=== PATIENT | male | born 1965 | race Hispanic/Latino ===

== ENCOUNTER 2017-12-14 08:59 | Day surgery (SDC) | payer MEDICARE ==
[2017-12-14] VITALS (7 sets, daily range): BP systolic 115–156; BP diastolic 52–72
[~2017-12-14] VITALS: Ht 172.7 cm; Wt 109.3 kg
[~2017-12-14 08:59] MED LIST: APIX2.5T PO; ASPI-1181 PO; ATOR40TA71 PO; BESI5OS OS; CLOP75TA14 PO; DIFL5DRO OS; FAMO20TA8 PO; GABA-529 PO; LIRA0.6P SQ; LORA10CA PO; LOSA50TA25 PO; METO50TA18 PO; SEVE800T7 PO; SODIUM CHLORIDE 0.9% 1000ML 1,000 ML IV ONE; SUCR500T PO
[2017-12-14] MEDS ORDERED: CALC667C10 PO (10:53)
[2017-12-14] MEDS ORDERED: INSLAN SQ (10:53)
[2017-12-14] MEDS ORDERED: SUCR1TAB2 PO (10:53)
[2017-12-14] MEDS ORDERED: PANT40TA25 PO (10:53)
[2017-12-14] MEDS ORDERED: OMEP40CA37 PO (10:53)
[2017-12-14] MEDS ORDERED: BRIM5DRO4 OU (10:53)
[2017-12-14] MEDS ORDERED: PROPOFOL 10 MG/ML 20ML VIAL IV ONE ×2 (10:53→11:22)
[2017-12-14] MEDS ORDERED: FOLI1TAB61 PO (10:53)
[2017-12-14] MEDS ORDERED: LIDOCAINE HCL-MPF 2% 5ML VIAL ONE (10:54)
== END 2017-12-14 12:01 | disposition home or self-care (01) ==
LOC: ENDO 08:59 → DAH 08:59 → ENDO 12:01
PROVIDERS: ATTEND Internal Medicine
DX: K29.50 Unspecified chronic gastritis without bleeding (principal); K29.80 Duodenitis without bleeding; B96.81 Helicobacter pylori [H. pylori] as the cause of diseases classified elsewhere; K26.9 Duodenal ulcer, unspecified as acute or chronic, without hemorrhage or perforation; K31.89 Other diseases of stomach and duodenum; K22.8 Other specified diseases of esophagus; D64.9 Anemia, unspecified; I25.118 Atherosclerotic heart disease of native coronary artery with other forms of angina pectoris; E78.5 Hyperlipidemia, unspecified; Z79.899 Other long term (current) drug therapy; E11.51 Type 2 diabetes mellitus with diabetic peripheral angiopathy without gangrene; Z90.49 Acquired absence of other specified parts of digestive tract; I13.2 Hypertensive heart and chronic kidney disease with heart failure and with stage 5 chronic kidney disease, or end stage renal disease; E11.22 Type 2 diabetes mellitus with diabetic chronic kidney disease; N18.6 End stage renal disease; I50.31 Acute diastolic (congestive) heart failure; Z99.2 Dependence on renal dialysis; Z79.4 Long term (current) use of insulin; Z79.84 Long term (current) use of oral hypoglycemic drugs; K21.9 Gastro-esophageal reflux disease without esophagitis
CPT/HCPCS: 36415; 43239; 82948 ×2; 84132; 88305; 88342; A4606; J2704 ×2; J3490; J7030

== ENCOUNTER → 2018-11-15 | Outpatient (CLI) | payer MEDICARE ==
[~2018-11-15] MED LIST changes: -APIX2.5T PO; -ASPI-1181 PO; -BESI5OS OS; +BRIM5DRO4 OU; +CALC667C10 PO; -DIFL5DRO OS; -FAMO20TA8 PO; +FOLI1TAB61 PO; -GABA-529 PO; +INSLAN SQ; -LIRA0.6P SQ; -LORA10CA PO; -LOSA50TA25 PO; +LOSA50TA64 PO; +OMEP40CA37 PO; +PANT40TA25 PO; -SODIUM CHLORIDE 0.9% 1000ML 1,000 ML IV ONE; +SUCR1TAB2 PO
== END | disposition home or self-care (01) ==
LOC: RAH 09:48
PROVIDERS: ATTEND Internal Medicine Gastroenterology
DX: R16.0 Hepatomegaly, not elsewhere classified (principal)
CPT/HCPCS: 76700

== ENCOUNTER 2018-12-29 15:46 | Emergency (ER) | payer MEDICARE | END 2018-12-29 16:51 | disposition home or self-care (01) | LOC: EDH 15:46 | DX: S91.115A Laceration without foreign body of left lesser toe(s) without damage to nail, initial encounter (principal); E11.22 Type 2 diabetes mellitus with diabetic chronic kidney disease; I12.0 Hypertensive chronic kidney disease with stage 5 chronic kidney disease or end stage renal disease; N18.6 End stage renal disease; E78.5 Hyperlipidemia, unspecified; Z99.2 Dependence on renal dialysis; W26.8XXA Contact with other sharp object(s), not elsewhere classified, initial encounter; Y93.89 Activity, other specified; Y92.89 Other specified places as the place of occurrence of the external cause; Y99.8 Other external cause status ==

== ENCOUNTER → 2019-06-05 | Outpatient (CLI) | payer MEDICARE ==
[~2019-06-05] MED LIST changes: +ATOR40TA69 PO; -ATOR40TA71 PO; +BENZ-51 PO; -BRIM5DRO4 OU; +CARV6.25 PO; -CLOP75TA14 PO; -FOLI1TAB61 PO; -INSLAN SQ; +LOPE2CAP PO; +LOSA100T58 PO; -LOSA50TA64 PO; -METO50TA18 PO; -OMEP40CA37 PO; -SUCR1TAB2 PO
== END | disposition home or self-care (01) ==
LOC: CANPRECLI → RAH 06:40
PROVIDERS: ATTEND Internal Medicine Gastroenterology
DX: R11.0 Nausea (principal); R68.81 Early satiety; R14.0 Abdominal distension (gaseous)
CPT/HCPCS: 78264; A9541

== ENCOUNTER → 2019-11-07 | Outpatient (CLI) | payer MEDICARE | END | disposition home or self-care (01) | LOC: SHCH 10:17 | PROVIDERS: ATTEND Internal Medicine Cardiovascular Disease | DX: I78.9 Disease of capillaries, unspecified (principal) | CPT/HCPCS: 93925 ==

== ENCOUNTER 2019-12-10 20:37 | Inpatient (IN) | payer MEDICARE ==
[~2019-12-10] VITALS: Ht 162.6 cm; Wt 118.8 kg
[~2019-12-10 20:37] MED LIST changes: -PANT40TA25 PO; +PANT40TA54 PO
[2019-12-10] MEDS ORDERED: AZITHROMYCIN 500MG+NS 250ML 250 ML IV ONE (21:02)
[2019-12-10] MEDS ORDERED: CEFTRIAXONE SODIUM 2 GM VIAL ONE (21:02)
[2019-12-10] MEDS ORDERED: SODIUM CHLORIDE 0.9% 50 ML IV ONE (21:03)
[2019-12-10 21:08] LABS: ABG BASE EXCESS -0.4 mmol/L (-2.0-3.0); ABG OXYGEN SATURATION 92.1 % (95.0-99.0); ABG PCO2 34 mmHg (35-48)
[2019-12-10] MEDS ORDERED: ACETAMINOPHEN EXTRA STRENGTH 500 MG TABLET ONE (21:21)
[2019-12-10 21:25] LABS: BASOPHILS % (AUTO) 0.1 % (0.0-5.0); EOSINOPHILS % (AUTO) 0.3 % (0.0-8.0); HEMATOCRIT 30.5 % (42-54); LYMPHOCYTES % (AUTO) 9.9 % (21.0-51.0); MEAN CORPUSCULAR HGB CONC 33.1 g/dL (32.0-36.0); MEAN CORPUSCULAR VOLUME 93.6 fL (79-99); NEUTROPHILS % (AUTO) 81.4 % (40.0-77.0); PLATELET COUNT (AUTO) 146 K/uL (130-400); RED BLOOD CELL COUNT(AUTO) 3.26 MIL/uL (4.50-6.20); RED CELL DISTRIBUTION WIDTH 13.8 % (11.0-15.5); WHITE BLOOD COUNT (AUTO) 7.4 K/uL (4.8-10.8)
[2019-12-10 21:39] LABS: INR 0.88 (0.85-1.15); PARTIAL THROMBOPLASTIN TIME 27.8 SEC (26.3-35.5); PROTHROMBIN TIME 9.6 SEC (9.6-11.6)
[2019-12-10 22:00] LABS: ALBUMIN 3.1 g/dL (3.5-5.0); BILIRUBIN,TOTAL 0.4 mg/dL (0.2-1.0); POTASSIUM 5.1 mmol/L (3.5-5.1); TOTAL PROTEIN, SERUM 7.6 g/dL (6.0-8.3); TROPONIN I 0.05 ng/mL (0.00-0.06)
[2019-12-10 22:04] LABS: CREATININE 12.1 mg/dL (0.5-1.5)
[2019-12-10 23:15] LABS: APPEARANCE,URINE Clear (CLEAR); BILIRUBIN,URINE Negative (NEGATIVE); COLOR,URINE Yellow (YELLOW); GLUCOSE, URINE (UA) >=1000 mg/dL (NEGATIVE); KETONES,URINE Negative (NEGATIVE); LEUKOCYTE ESTERASE ,URINE Negative (NEGATIVE); NITRATE,URINE Negative (NEGATIVE); OCCULT BLOOD,URINE Negative (NEGATIVE); PH,URINE 7.5 (5.0-8.0); PROTEIN,URINE 300 mg/dL (NEGATIVE)
[2019-12-10 23:27] LABS: BACTERIA,URINE None Seen /HPF (None Seen); RBC,URINE 0-1 /HPF (0-1); SQUAMOUS EPITHELIAL CELL,UR Rare /HPF (0-2); WBC,URINE 0-1 /HPF (0-1); YEAST,URINE BUDDING None Seen /HPF (None Seen)
[2019-12-10] MEDS ORDERED: ONDANSETRON HCL 4 MG/2 ML VIAL IV PRN (23:30)
[2019-12-10] MEDS ORDERED: MAG HYDROX/AL HYDROX/SIMETH ES 30 ML SUSP UDCUP PO PRN (23:30)
[2019-12-10] MEDS: AZITHROMYCIN 500MG+NS 250ML 250 ML IV SCH (23:30)
[2019-12-10] MEDS ORDERED: ACETAMINOPHEN 325 MG TAB PO PRN (23:30)
[2019-12-10] MEDS ORDERED: LACTULOSE 20 GM/30 ML UDCUP PO PRN (23:30)
[2019-12-10] MEDS ORDERED: NITROGLYCERIN 0.4 MG SL TAB SL PRN (23:30)
[2019-12-10] MEDS: CEFTRIAXONE SODIUM 1 GM IV SCH (23:30)
[2019-12-10] MEDS ORDERED: MORPHINE SULFATE 2 MG/ML 1ML SYG IV PRN (23:30)
[2019-12-10] MEDS ORDERED: MORPHINE SULFATE 4 MG/1ML SYG IV PRN (23:30)
[2019-12-10] MEDS ORDERED: MAG HYDROX/AL HYDROX/SIMETH 30 ML, LIDOCAINE HCL 2% VISCOUS 30 ML, DIPHENHYDRAMINE HCL ... PO PRN ×3 (23:30)
[2019-12-10] MEDS ORDERED: DiphenhydrAMINE HCL 50 MG/ML VIAL IV PRN (23:30)
[2019-12-10] MEDS ORDERED: LIDOCAINE HCL 2% VISCOUS 30 ML, MAG HYDROX/AL HYDROX/SIMETH 30 ML, BELLADONNA-PHENOBARB... PO PRN ×3 (23:30)
[2019-12-10] MEDS ORDERED: DIPHENHYDRAMINE HCL 25 MG CAPSULE PO PRN (23:30)
[2019-12-10] MEDS: DEXAMETHASONE SOD PHOSPHATE 4 MG/ML 1ML VIAL IVP SCH (23:45)
[2019-12-11] MEDS ORDERED: ERGOCALCIFEROL (VITAMIN D2) 50,000 UNIT CAPSULE PO ONE
[2019-12-11] MEDS ORDERED: IOHEXOL-350 75 ML VIAL IV ONE (00:27)
[2019-12-11] MEDS ORDERED: DEXAMETHASONE SOD PHOSPHATE 10MG/ML 1ML VIAL ONE (00:42)
[2019-12-11] MEDS ORDERED: ERGOCALCIFEROL (VITAMIN D2) 50,000 UNIT CAPSULE ONE (00:42)
[2019-12-11] MEDS ORDERED: GLUCAGON 1MG KIT 1 MG ML IM PRN (00:45)
[2019-12-11] MEDS ORDERED: DEXTROSE 50%-WATER 50 ML DISP.SYRIN IV PRN (00:45)
[2019-12-11] MEDS ORDERED: PHARMACY COMMUNICATION**REMDESIVIR ORDER MISC SCH (01:00)
[2019-12-11] MEDS: GUAIFENESIN-DM 200/20 MG 10 ML PO PRN ×3 (05:09→20:40)
[2019-12-11] MEDS: ACETAMINOPHEN 325 MG TAB PO PRN ×2 (05:09→20:41)
[2019-12-11] MEDS: INSULIN HUMULIN R 100 UNIT/ML 3ML SQ SCH ×4 (06:15→20:39)
[2019-12-11 06:43] VITALS: BP 146/62
[2019-12-11 06:59] LABS: BASOPHILS % (AUTO) 0.2 % (0.0-5.0); HEMATOCRIT 31.2 % (42-54); LYMPHOCYTES % (AUTO) 6.3 % (21.0-51.0); MEAN CORPUSCULAR HEMOGLOBIN 31.5 pg (27.0-33.0); MEAN CORPUSCULAR VOLUME 95.4 fL (79-99); MONOCYTES % (AUTO) 2.6 % (3.0-13.0); NEUTROPHILS % (AUTO) 90.3 % (40.0-77.0); PLATELET COUNT (AUTO) 143 K/uL (130-400); RED BLOOD CELL COUNT(AUTO) 3.27 MIL/uL (4.50-6.20); RED CELL DISTRIBUTION WIDTH 13.9 % (11.0-15.5); WHITE BLOOD COUNT (AUTO) 6.6 K/uL (4.8-10.8)
[2019-12-11] MEDS ORDERED: INSULIN LISPRO 100 UNIT/ML 3ML SQ SCH (07:30)
[2019-12-11 08:08] LABS: HEMOGLOBIN A1C 10.5 % (4.0-6.0)
[2019-12-11] MEDS: ASCORBIC ACID 500 MG TAB PO SCH (08:22)
[2019-12-11] MEDS: ZINC SULFATE 220 CAPSULE PO SCH (08:22)
[2019-12-11] MEDS: PANTOPRAZOLE SODIUM 40 MG TABLET.DR PO SCH (08:23)
[2019-12-11] MEDS: FAMOTIDINE/PF 20 MG/2 ML VIAL IV SCH ×2 (08:23→20:40)
[2019-12-11 08:26] LABS: CRP QUANTITATIVE 61.4 mg/L (0.00-9.0); POTASSIUM 5.6 mmol/L (3.5-5.1)
[2019-12-11 08:27] LABS: PHOSPHORUS 5.9 mg/dL (2.5-4.9)
[2019-12-11 08:28] LABS: BILIRUBIN,TOTAL 0.4 mg/dL (0.2-1.0)
[2019-12-11 08:29] LABS: ALBUMIN 2.9 g/dL (3.5-5.0); TOTAL PROTEIN, SERUM 7.5 g/dL (6.0-8.3)
[2019-12-11 08:30] VITALS: BP 152/75
[2019-12-11 08:33] LABS: CREATININE 12.7 mg/dL (0.5-1.5)
[2019-12-11] MEDS: HEPARIN SODIUM 5000UNIT/ML 1ML VIAL SQ SCH ×3 (08:34→20:39)
--- NOTE | 2019-12-11 10:38 | NUR ---
DCP CM spoke to pt discussed dc plans. Pt is assist with ADL's, lives at home alone, friend lives close by. Pt has a provider 18hrs w/[facility], walker, wheelchair, cane, shower chair, goes to [facility] @ 4:40am via [facility] van. Uses [facility] in [place] for meds. Feels safe to go back home, pt states his friend Leah Ng able to assist with transportation as necessary. DC plan to home once stable. CM to cont to follow up. Addendum: 12/11/19 at 1040 by SOLOMON YIN LVN CM Amended: Links added.
[2019-12-11 12:08] VITALS: BP 147/57
[2019-12-11 16:30] VITALS: BP 180/79
[2019-12-11 20:37] VITALS: BP 128/76
[2019-12-11] MEDS: DEXAMETHASONE SOD PHOSPHATE 4 MG/ML 1ML VIAL IVP SCH (23:16)
[2019-12-11] MEDS: CEFTRIAXONE SODIUM 1 GM IV SCH (23:16)
[2019-12-11] MEDS: AZITHROMYCIN 500MG+NS 250ML 250 ML IV SCH (23:16)
[2019-12-12] MEDS: GUAIFENESIN-DM 200/20 MG 10 ML PO PRN ×2 (05:27→18:02)
[2019-12-12] MEDS: ACETAMINOPHEN 325 MG TAB PO PRN (05:28)
[2019-12-12 05:38] VITALS: BP 156/81
--- NOTE | 2019-12-12 06:47 | NUR ---
RECEIVED REPORT FROM [facility], PT WAS GIVEN REGULAR PLASMA, INFORMED KARLEE CHARGED NURSE AND [employer] PROSTHETICS TECHNICIAN, INCIDENT REPORT DONE Unique Id: [id number] , WILL PASS TO AM NURSE TO TRANSFUSED THE SECOND UNIT OF COVALESCENT PLASMA.
[2019-12-12] MEDS: INSULIN HUMULIN R 100 UNIT/ML 3ML SQ SCH ×4 (06:52→20:33)
[2019-12-12 07:01] LABS: BASOPHILS % (AUTO) 0.1 % (0.0-5.0); HEMATOCRIT 29.4 % (42-54); MEAN CORPUSCULAR HEMOGLOBIN 31.2 pg (27.0-33.0); MEAN CORPUSCULAR HGB CONC 33.3 g/dL (32.0-36.0); MEAN CORPUSCULAR VOLUME 93.6 fL (79-99); MONOCYTES % (AUTO) 4.1 % (3.0-13.0); NEUTROPHILS % (AUTO) 90.5 % (40.0-77.0); PLATELET COUNT (AUTO) 149 K/uL (130-400); RED BLOOD CELL COUNT(AUTO) 3.14 MIL/uL (4.50-6.20); RED CELL DISTRIBUTION WIDTH 13.9 % (11.0-15.5); WHITE BLOOD COUNT (AUTO) 7.7 K/uL (4.8-10.8)
[2019-12-12 07:06] LABS: ALBUMIN 2.8 g/dL (3.5-5.0); BILIRUBIN,TOTAL 0.4 mg/dL (0.2-1.0); CRP QUANTITATIVE 57.4 mg/L (0.00-9.0); MAGNESIUM 2.5 mg/dL (1.80-2.40); PHOSPHORUS 5.6 mg/dL (2.5-4.9); POTASSIUM 4.7 mmol/L (3.5-5.1); TOTAL PROTEIN, SERUM 7.2 g/dL (6.0-8.3)
[2019-12-12 07:10] LABS: CREATININE 9.5 mg/dL (0.5-1.5)
[2019-12-12 08:00] VITALS: BP 158/81
[2019-12-12] MEDS: FAMOTIDINE/PF 20 MG/2 ML VIAL IV SCH ×2 (08:29→20:21)
[2019-12-12] MEDS: ASPIRIN 81MG TAB.CHEW PO SCH (08:29)
[2019-12-12] MEDS: PANTOPRAZOLE SODIUM 40 MG TABLET.DR PO SCH (08:29)
[2019-12-12] MEDS: ZINC SULFATE 220 CAPSULE PO SCH (08:30)
[2019-12-12] MEDS: ASCORBIC ACID 500 MG TAB PO SCH (08:30)
[2019-12-12] MEDS: HEPARIN SODIUM 5000UNIT/ML 1ML VIAL SQ SCH ×3 (08:43→20:32)
[2019-12-12 12:39] VITALS: BP 144/81
[2019-12-12] MEDS ORDERED: HYDRALAZINE HCL 20 MG/ML VIAL IV PRN (15:15)
[2019-12-12] MEDS ORDERED: CILO100T PO (15:42)
[2019-12-12] MEDS ORDERED: BENZ200C53 PO (15:42)
[2019-12-12] MEDS ORDERED: ASCO500T20 PO (15:44)
[2019-12-12] MEDS ORDERED: CALC-866 PO (15:49)
[2019-12-12] MEDS ORDERED: ZINC50TA64 PO (15:49)
[2019-12-12] MEDS: CILOSTAZOL 100 MG TAB PO SCH (16:14)
[2019-12-12] MEDS: LOSARTAN 100 MG TABLET PO SCH (16:14)
[2019-12-12] MEDS ORDERED: LOSARTAN 100 MG TABLET PO SCH (16:15)
[2019-12-12] MEDS: CALCIUM ACETATE 667 MG CAPSULE PO SCH ×2 (16:15→20:28)
[2019-12-12] MEDS: CARVEDILOL 6.25 MG TABLET PO SCH (16:15)
[2019-12-12 16:27] VITALS: BP 199/90
[2019-12-12] MEDS: SUCROFERRIC OXYHYDROXIDE 500 MG PO SCH (17:01)
--- NOTE | 2019-12-12 17:18 | NUR ---
Call out to Md for high Bgm of 370 insulin on sliding scale given. Awaiting call back from md for further orders. Pt asymptomatic will cont to monitor
[2019-12-12] MEDS: HONEY 1 APPL/ML TUBE TP SCH (18:30)
[2019-12-12 19:30] VITALS: BP 121/66
[2019-12-12] MEDS: SEVELAMER HCL 800 MG TABLET PO SCH (20:28)
[2019-12-12] MEDS: AZITHROMYCIN 500MG+NS 250ML 250 ML IV SCH (22:21)
[2019-12-12] MEDS: DEXAMETHASONE SOD PHOSPHATE 4 MG/ML 1ML VIAL IVP SCH (22:22)
[2019-12-12] MEDS: CEFTRIAXONE SODIUM 1 GM IV SCH (22:22)
[2019-12-12 23:00] VITALS: BP 142/67
[2019-12-13 03:47] VITALS: BP 148/80
[2019-12-13 05:05] LABS: BASOPHILS % (AUTO) 0.1 % (0.0-5.0); HEMATOCRIT 28.2 % (42-54); LYMPHOCYTES % (AUTO) 4.9 % (21.0-51.0); MEAN CORPUSCULAR HEMOGLOBIN 31.3 pg (27.0-33.0); MEAN CORPUSCULAR HGB CONC 33.3 g/dL (32.0-36.0); MONOCYTES % (AUTO) 3.3 % (3.0-13.0); NEUTROPHILS % (AUTO) 91.1 % (40.0-77.0); PLATELET COUNT (AUTO) 177 K/uL (130-400); RED CELL DISTRIBUTION WIDTH 14.3 % (11.0-15.5); WHITE BLOOD COUNT (AUTO) 10.4 K/uL (4.8-10.8)
[2019-12-13 05:39] LABS: ALBUMIN 2.6 g/dL (3.5-5.0); BILIRUBIN,TOTAL 0.4 mg/dL (0.2-1.0); CRP QUANTITATIVE 73.4 mg/L (0.00-9.0); MAGNESIUM 2.5 mg/dL (1.80-2.40); POTASSIUM 5.3 mmol/L (3.5-5.1); TOTAL PROTEIN, SERUM 6.8 g/dL (6.0-8.3)
[2019-12-13 05:52] LABS: CREATININE 11.2 mg/dL (0.5-1.5)
[2019-12-13] MEDS: INSULIN HUMULIN R 100 UNIT/ML 3ML SQ SCH ×4 (06:46→20:51)
[2019-12-13] MEDS: ASCORBIC ACID 500 MG TAB PO SCH (08:27)
[2019-12-13] MEDS: SEVELAMER HCL 800 MG TABLET PO SCH ×3 (08:27→20:57)
[2019-12-13] MEDS: ZINC SULFATE 220 CAPSULE PO SCH (08:27)
[2019-12-13] MEDS: LOSARTAN 100 MG TABLET PO SCH (08:27)
[2019-12-13] MEDS: CALCIUM ACETATE 667 MG CAPSULE PO SCH ×4 (08:27→21:01)
[2019-12-13] MEDS: ASPIRIN 81MG TAB.CHEW PO SCH (08:27)
[2019-12-13] MEDS: CILOSTAZOL 100 MG TAB PO SCH (08:28)
[2019-12-13] MEDS: PANTOPRAZOLE SODIUM 40 MG TABLET.DR PO SCH (08:28)
[2019-12-13] MEDS: CARVEDILOL 6.25 MG TABLET PO SCH (08:28)
[2019-12-13] MEDS: FAMOTIDINE/PF 20 MG/2 ML VIAL IV SCH ×2 (08:28→21:01)
[2019-12-13 08:30] VITALS: BP 163/75
[2019-12-13] MEDS: HEPARIN SODIUM 5000UNIT/ML 1ML VIAL SQ SCH ×3 (08:33→21:01)
[2019-12-13] MEDS: CHOLECALCIFEROL 125 MCG PO SCH (08:41)
[2019-12-13] MEDS: SUCROFERRIC OXYHYDROXIDE 500 MG PO SCH ×3 (08:42→17:13)
[2019-12-13] MEDS ORDERED: INSULIN GLARGINE 100 UNITS/ML 10 ML VIAL SQ SCH (09:00)
[2019-12-13 12:00] VITALS: BP 150/87
[2019-12-13 13:12] LABS: HEPATITIS A ANTIBODY IGM Negative (Negative); HEPATITIS B CORE IGM Negative (Negative); HEPATITIS Bs ANTIGEN SCREEN P Negative (Negative)
[2019-12-13 16:23] VITALS: BP 120/58
[2019-12-13] MEDS: HONEY 1 APPL/ML TUBE TP SCH (17:13)
[2019-12-13 19:30] VITALS: BP 146/72
[2019-12-13] MEDS: ACETAMINOPHEN 325 MG TAB PO PRN (20:58)
[2019-12-13] MEDS: DEXAMETHASONE SOD PHOSPHATE 4 MG/ML 1ML VIAL IVP SCH (20:59)
[2019-12-13] MEDS: ZOLPIDEM TARTRATE 5 MG TAB PO PRN (20:59)
[2019-12-13] MEDS: GUAIFENESIN-DM 200/20 MG 10 ML PO PRN (21:01)
[2019-12-13] MEDS: AZITHROMYCIN 500MG+NS 250ML 250 ML IV SCH (23:51)
[2019-12-13] MEDS: CEFTRIAXONE SODIUM 1 GM IV SCH (23:51)
[2019-12-14 00:05] VITALS: BP 150/87
[2019-12-14 04:00] VITALS: BP 150/69
[2019-12-14] MEDS: GUAIFENESIN-DM 200/20 MG 10 ML PO PRN ×2 (06:16→20:15)
[2019-12-14] MEDS: INSULIN HUMULIN R 100 UNIT/ML 3ML SQ SCH ×4 (06:16→19:47)
[2019-12-14] MEDS: ACETAMINOPHEN 325 MG TAB PO PRN ×2 (06:17→20:15)
--- NOTE | 2019-12-14 06:42 | NUR ---
received report from valentin roach care, shift assessment done, 24 dcc done, timed medicaiton given see emar, safety maintained.
[2019-12-14 07:00] VITALS: BP 159/72
[2019-12-14 07:11] LABS: CRP QUANTITATIVE 64.8 mg/L (0.00-9.0); POTASSIUM 4.8 mmol/L (3.5-5.1)
[2019-12-14 07:16] LABS: CREATININE 9.2 mg/dL (0.5-1.5)
[2019-12-14] MEDS: SUCROFERRIC OXYHYDROXIDE 500 MG PO SCH ×3 (08:17→16:41)
[2019-12-14] MEDS: PANTOPRAZOLE SODIUM 40 MG TABLET.DR PO SCH (08:51)
[2019-12-14] MEDS: ASCORBIC ACID 500 MG TAB PO SCH (08:51)
[2019-12-14] MEDS: CILOSTAZOL 100 MG TAB PO SCH (08:51)
[2019-12-14] MEDS: LOSARTAN 100 MG TABLET PO SCH (08:51)
[2019-12-14] MEDS: ASPIRIN 81MG TAB.CHEW PO SCH (08:51)
[2019-12-14] MEDS: SEVELAMER HCL 800 MG TABLET PO SCH ×3 (08:51→20:16)
[2019-12-14] MEDS: FAMOTIDINE/PF 20 MG/2 ML VIAL IV SCH ×2 (08:53→20:16)
[2019-12-14] MEDS: ZINC SULFATE 220 CAPSULE PO SCH (08:53)
[2019-12-14] MEDS: CARVEDILOL 6.25 MG TABLET PO SCH (08:53)
[2019-12-14] MEDS: CALCIUM ACETATE 667 MG CAPSULE PO SCH ×4 (08:55→20:16)
[2019-12-14] MEDS: CHOLECALCIFEROL 125 MCG PO SCH (08:55)
[2019-12-14] MEDS: INSULIN GLARGINE 100 UNITS/ML 10 ML VIAL SQ SCH (08:57)
[2019-12-14] MEDS: HEPARIN SODIUM 5000UNIT/ML 1ML VIAL SQ SCH ×3 (08:57→19:52)
[2019-12-14 11:30] VITALS: BP 130/70
[2019-12-14 16:00] VITALS: BP 185/88
[2019-12-14] MEDS: HONEY 1 APPL/ML TUBE TP SCH (18:26)
[2019-12-14 19:30] VITALS: BP 170/73
[2019-12-14] MEDS: ZOLPIDEM TARTRATE 5 MG TAB PO PRN (20:16)
[2019-12-14] MEDS ORDERED: INSULIN GLARGINE 100 UNITS/ML 10 ML VIAL SQ ONE (21:00)
[2019-12-15 03:06] VITALS: BP 145/87
--- NOTE | 2019-12-15 03:20 | NUR ---
received report from marley keyes nurse, assumed care, head to toe and shift assessment done, 24 cc done, pt is on room air, up ad dayan, given timed medication see emar, and prn medication see emar, safety maintained.
[2019-12-15] MEDS: DEXAMETHASONE SOD PHOSPHATE 4 MG/ML 1ML VIAL IVP SCH (03:39)
[2019-12-15] MEDS: CEFTRIAXONE SODIUM 1 GM IV SCH ×2 (03:40→23:39)
[2019-12-15 04:00] VITALS: BP 163/73
[2019-12-15] MEDS: GUAIFENESIN-DM 200/20 MG 10 ML PO PRN ×2 (05:22→20:12)
[2019-12-15] MEDS: ACETAMINOPHEN 325 MG TAB PO PRN ×2 (05:23→20:13)
[2019-12-15] MEDS: INSULIN HUMULIN R 100 UNIT/ML 3ML SQ SCH ×4 (06:18→20:15)
[2019-12-15 07:36] LABS: MEAN CORPUSCULAR HEMOGLOBIN 31.3 pg (27.0-33.0); MEAN CORPUSCULAR HGB CONC 33.1 g/dL (32.0-36.0); MEAN CORPUSCULAR VOLUME 94.5 fL (79-99); MONOCYTES % (AUTO) 3.7 % (3.0-13.0); PLATELET COUNT (AUTO) 222 K/uL (130-400); RED BLOOD CELL COUNT(AUTO) 3.07 MIL/uL (4.50-6.20); RED CELL DISTRIBUTION WIDTH 13.6 % (11.0-15.5); WHITE BLOOD COUNT (AUTO) 8.6 K/uL (4.8-10.8)
[2019-12-15 07:59] LABS: CRP QUANTITATIVE 35.4 mg/L (0.00-9.0); POTASSIUM 4.5 mmol/L (3.5-5.1)
[2019-12-15 08:00] VITALS: BP 184/81
[2019-12-15 08:15] LABS: CREATININE 11.3 mg/dL (0.5-1.5)
[2019-12-15] MEDS: SUCROFERRIC OXYHYDROXIDE 500 MG PO SCH ×3 (08:31→16:30)
[2019-12-15] MEDS: SEVELAMER HCL 800 MG TABLET PO SCH ×3 (08:32→20:32)
[2019-12-15] MEDS: CILOSTAZOL 100 MG TAB PO SCH (08:32)
[2019-12-15] MEDS: LOSARTAN 100 MG TABLET PO SCH (08:32)
[2019-12-15] MEDS: ASCORBIC ACID 500 MG TAB PO SCH (08:34)
[2019-12-15] MEDS: ZINC SULFATE 220 CAPSULE PO SCH (08:34)
[2019-12-15] MEDS: FAMOTIDINE/PF 20 MG/2 ML VIAL IV SCH ×2 (08:34→20:12)
[2019-12-15] MEDS: ASPIRIN 81MG TAB.CHEW PO SCH (08:34)
[2019-12-15] MEDS: CARVEDILOL 6.25 MG TABLET PO SCH (08:34)
[2019-12-15] MEDS: CALCIUM ACETATE 667 MG CAPSULE PO SCH ×4 (08:34→20:32)
[2019-12-15] MEDS: PANTOPRAZOLE SODIUM 40 MG TABLET.DR PO SCH (08:34)
[2019-12-15] MEDS: CHOLECALCIFEROL 125 MCG PO SCH (08:35)
[2019-12-15] MEDS: INSULIN GLARGINE 100 UNITS/ML 10 ML VIAL SQ SCH (08:37)
[2019-12-15] MEDS: HEPARIN SODIUM 5000UNIT/ML 1ML VIAL SQ SCH ×3 (08:37→20:16)
[2019-12-15 12:00] VITALS: BP 185/86
[2019-12-15 16:00] VITALS: BP 152/68
--- NOTE | 2019-12-15 18:29 | NUR ---
HOME O2 CM spoke to pt about home oxygen arrangements. CM verified home physical address [id number] [place] [address]. CM offered short term snf/rehab as possible d/c option. State she has assistance at home and feels safe to return home with oxygen. CM offered choices. Obtained consent for [facility] vs [employer] for oxygen. CM explained process may take more than 24 hours for approval. Patient verbalized understanding. CM to fax referral and follow up.
[2019-12-15] MEDS: HONEY 1 APPL/ML TUBE TP SCH (18:54)
[2019-12-15 19:30] VITALS: BP 168/88
[2019-12-15] MEDS: ZOLPIDEM TARTRATE 5 MG TAB PO PRN (20:12)
[2019-12-15] MEDS ORDERED: EPOETIN ALFA 10,000 UNIT/ML VIAL SQ SCH (21:00)
[2019-12-16] VITALS (7 sets, daily range): BP systolic 150–181; BP diastolic 68–94
--- NOTE | 2019-12-16 04:42 | NUR ---
received report from [facility] care, waiting for dialysis placement coordination pt is covid +, timed medication given see emar, safety maintained, bed in lowest position, call rodriguez in reached, will continue to monitor. 24 cc done. shift assessment and head to toe assessment done, outcome criteria documented.
[2019-12-16] MEDS: INSULIN HUMULIN R 100 UNIT/ML 3ML SQ SCH ×4 (05:50→19:57)
[2019-12-16 06:49] LABS: HEMATOCRIT 29.3 % (42-54); LYMPHOCYTES % (AUTO) 6.7 % (21.0-51.0); MEAN CORPUSCULAR HEMOGLOBIN 31.5 pg (27.0-33.0); MEAN CORPUSCULAR HGB CONC 33.4 g/dL (32.0-36.0); MEAN CORPUSCULAR VOLUME 94.2 fL (79-99); MONOCYTES % (AUTO) 3.6 % (3.0-13.0); NEUTROPHILS % (AUTO) 88.4 % (40.0-77.0); PLATELET COUNT (AUTO) 262 K/uL (130-400); RED BLOOD CELL COUNT(AUTO) 3.11 MIL/uL (4.50-6.20); RED CELL DISTRIBUTION WIDTH 13.6 % (11.0-15.5); WHITE BLOOD COUNT (AUTO) 7.8 K/uL (4.8-10.8)
[2019-12-16 07:36] LABS: CRP QUANTITATIVE 23.5 mg/L (0.00-9.0); POTASSIUM 4.5 mmol/L (3.5-5.1)
[2019-12-16 08:24] LABS: CREATININE 9.3 mg/dL (0.5-1.5)
[2019-12-16] MEDS: HEPARIN SODIUM 5000UNIT/ML 1ML VIAL SQ SCH ×3 (08:28→20:21)
[2019-12-16] MEDS: INSULIN GLARGINE 100 UNITS/ML 10 ML VIAL SQ SCH (08:29)
[2019-12-16] MEDS: LOSARTAN 100 MG TABLET PO SCH (08:30)
[2019-12-16] MEDS: ASPIRIN 81MG TAB.CHEW PO SCH (08:30)
[2019-12-16] MEDS: ZINC SULFATE 220 CAPSULE PO SCH (08:30)
[2019-12-16] MEDS: CARVEDILOL 6.25 MG TABLET PO SCH (08:30)
[2019-12-16] MEDS: PANTOPRAZOLE SODIUM 40 MG TABLET.DR PO SCH (08:30)
[2019-12-16] MEDS: SEVELAMER HCL 800 MG TABLET PO SCH ×3 (08:31→20:20)
[2019-12-16] MEDS: FAMOTIDINE/PF 20 MG/2 ML VIAL IV SCH ×2 (08:31→20:20)
[2019-12-16] MEDS: ASCORBIC ACID 500 MG TAB PO SCH (08:31)
[2019-12-16] MEDS: CILOSTAZOL 100 MG TAB PO SCH (08:31)
[2019-12-16] MEDS: SUCROFERRIC OXYHYDROXIDE 500 MG PO SCH ×3 (08:31→16:51)
[2019-12-16] MEDS: CALCIUM ACETATE 667 MG CAPSULE PO SCH ×4 (08:31→20:20)
[2019-12-16] MEDS: CHOLECALCIFEROL 125 MCG PO SCH (08:32)
[2019-12-16] MEDS: AMLODIPINE BESYLATE 5 MG TAB PO SCH (10:01)
[2019-12-16] MEDS: DEXAMETHASONE 4 MG TAB PO SCH (10:02)
[2019-12-16] MEDS: HONEY 1 APPL/ML TUBE TP SCH (17:23)
[2019-12-16] MEDS: GUAIFENESIN-DM 200/20 MG 10 ML PO PRN (20:19)
[2019-12-16] MEDS: ZOLPIDEM TARTRATE 5 MG TAB PO PRN (20:20)
[2019-12-16] MEDS: ACETAMINOPHEN 325 MG TAB PO PRN (20:20)
[2019-12-16] MEDS ORDERED: INSULIN GLARGINE 100 UNITS/ML 10 ML VIAL SQ SCH (21:00)
[2019-12-16] MEDS: CEFTRIAXONE SODIUM 1 GM IV SCH (23:33)
--- NOTE | 2019-12-16 23:39 | NUR ---
CONTACT AND SPOKE TO RADHA ELMORE, PT REQUEST DC TELE, ORDERED OK TO DC TELE. INFORMED DEWEY AND CHARGED NURSE.
[2019-12-17 04:00] VITALS: BP 178/79
--- NOTE | 2019-12-17 05:03 | NUR ---
RECEIVED REPORT FROM MARTINEZ OWEN NURSE, ASSUMED CARE, PT AOX4, SHIFT ASSESSMENT DONE, 24 CC DONE, TIMED MEDICATION GIVEN SEE EMAR, SAFETY MAINTAINED.
[2019-12-17] MEDS: INSULIN HUMULIN R 100 UNIT/ML 3ML SQ SCH ×2 (05:39→11:30)
[2019-12-17 06:14] VITALS: BP 164/68
[2019-12-17 06:37] LABS: CRP QUANTITATIVE 18.7 mg/L (0.00-9.0); POTASSIUM 4.4 mmol/L (3.5-5.1)
[2019-12-17 06:40] LABS: CREATININE 10.6 mg/dL (0.5-1.5)
[2019-12-17] MEDS: FAMOTIDINE/PF 20 MG/2 ML VIAL IV SCH (08:19)
[2019-12-17] MEDS: ASCORBIC ACID 500 MG TAB PO SCH (08:19)
[2019-12-17] MEDS: ASPIRIN 81MG TAB.CHEW PO SCH (08:19)
[2019-12-17] MEDS: DEXAMETHASONE 4 MG TAB PO SCH (08:20)
[2019-12-17] MEDS: SEVELAMER HCL 800 MG TABLET PO SCH ×2 (08:21→14:06)
[2019-12-17] MEDS: AMLODIPINE BESYLATE 5 MG TAB PO SCH (08:22)
[2019-12-17] MEDS: LOSARTAN 100 MG TABLET PO SCH (08:22)
[2019-12-17] MEDS: PANTOPRAZOLE SODIUM 40 MG TABLET.DR PO SCH (08:22)
[2019-12-17] MEDS: CARVEDILOL 6.25 MG TABLET PO SCH (08:22)
[2019-12-17] MEDS: CILOSTAZOL 100 MG TAB PO SCH (08:23)
[2019-12-17] MEDS: ZINC SULFATE 220 CAPSULE PO SCH (08:23)
[2019-12-17] MEDS: HEPARIN SODIUM 5000UNIT/ML 1ML VIAL SQ SCH ×2 (08:26→14:00)
[2019-12-17] MEDS: INSULIN GLARGINE 100 UNITS/ML 10 ML VIAL SQ SCH (08:30)
[2019-12-17] MEDS: CALCIUM ACETATE 667 MG CAPSULE PO SCH ×2 (08:39→12:10)
[2019-12-17] MEDS: CHOLECALCIFEROL 125 MCG PO SCH (08:39)
[2019-12-17] MEDS: SUCROFERRIC OXYHYDROXIDE 500 MG PO SCH ×2 (08:40→11:14)
[2019-12-17 11:00] VITALS: BP 184/88
[2020-01-08] MEDS ORDERED: METO5TAB2 PO (02:03)
== END 2019-12-17 15:30 | disposition home or self-care (01) | DRG 177 ==
LOC: EDH 20:37 → EDHIP 23:23 → 4AH 12-11 02:17
PROVIDERS: ADMIT Internal Medicine; ATTEND Internal Medicine
PROC: 5A1D70Z Performance of Urinary Filtration, Intermittent, Less than 6 Hours Per Day (ICD-10-PCS; 2019-12-11)
PROC: XW13325 Transfusion of Convalescent Plasma (Nonautologous) into Peripheral Vein, Percutaneous Approach, New Technology Group 5 (ICD-10-PCS; principal; 2019-12-12)
PROC: 5A1D70Z Performance of Urinary Filtration, Intermittent, Less than 6 Hours Per Day (ICD-10-PCS; 2019-12-13)
PROC: 5A1D70Z Performance of Urinary Filtration, Intermittent, Less than 6 Hours Per Day (ICD-10-PCS; 2019-12-15)
DX: U07.1 COVID-19 (principal); J12.89 Other viral pneumonia; J96.01 Acute respiratory failure with hypoxia; N18.6 End stage renal disease; J15.9 Unspecified bacterial pneumonia; J90 Pleural effusion, not elsewhere classified; E87.1 Hypo-osmolality and hyponatremia; I12.0 Hypertensive chronic kidney disease with stage 5 chronic kidney disease or end stage renal disease; N25.81 Secondary hyperparathyroidism of renal origin; Z99.2 Dependence on renal dialysis; E11.65 Type 2 diabetes mellitus with hyperglycemia; E11.621 Type 2 diabetes mellitus with foot ulcer; L97.529 Non-pressure chronic ulcer of other part of left foot with unspecified severity; D64.9 Anemia, unspecified; E11.22 Type 2 diabetes mellitus with diabetic chronic kidney disease; E11.51 Type 2 diabetes mellitus with diabetic peripheral angiopathy without gangrene; E78.00 Pure hypercholesterolemia, unspecified; E78.5 Hyperlipidemia, unspecified; E87.5 Hyperkalemia; E87.70 Fluid overload, unspecified; I25.10 Atherosclerotic heart disease of native coronary artery without angina pectoris; I44.4 Left anterior fascicular block; Z82.0 Family history of epilepsy and other diseases of the nervous system; Z82.3 Family history of stroke; Z82.49 Family history of ischemic heart disease and other diseases of the circulatory system; Z82.5 Family history of asthma and other chronic lower respiratory diseases; Z83.3 Family history of diabetes mellitus; Z87.11 Personal history of peptic ulcer disease; Z91.11 Patient's noncompliance with dietary regimen; Z91.19 Patient's noncompliance with other medical treatment and regimen; Z95.5 Presence of coronary angioplasty implant and graft
CPT/HCPCS: 36415; 36430; 36600; 71045; 71275; 73630; 73718; 80048; 80053; 80074; 81001; 82550; 82728; 82803; 82948; 83036; 83605; 83615; 83735; 83874; 83880; 84100; 84145; 84484; 85025; 85378; 85610; 85730; 86140; 86900; 86901; 86927; 87040; 87088; 87426; 87449; 90935; 93005; 93926; 94760; G0378; J0456; J0696; J0885; J1100; J1644; J1815; J3490; J8540; P9017; Q0163; Q9967

== ENCOUNTER 2020-01-28 06:49 | Day surgery (SDC) | payer MEDICARE ==
[~2020-01-28] VITALS: Ht 162.6 cm; Wt 108.9 kg
[~2020-01-28 06:49] MED LIST changes: +ASCO500T20 PO; -BENZ-51 PO; +BENZ200C53 PO; +CALC-866 PO; +CILO100T PO; +METO5TAB2 PO; +SODIUM CHLORIDE 0.9% 1000ML 1,000 ML IV ONE; +ZINC50TA64 PO
--- NOTE | 2020-01-28 07:30 | NUR ---
REVIEWED SYMPTOMS W/ DR MOSLEY & VERITO SOLE DYER O2 SAT W/OUT OXYGEN 92% PT SOB HAVING DIFFICULTY W/OUT THE USE OF O2. RIGHT SIDED WHEEZE .. NO INHALERS AT HOME.
[2020-01-28 07:33] VITALS: BP 196/88
[2020-01-28 08:06] LABS: POTASSIUM 5.2 mmol/L (3.5-5.1)
[2020-01-28 08:32] LABS: CREATININE 8.5 mg/dL (0.5-1.5)
== END 2020-01-28 09:00 | disposition home or self-care (01) ==
LOC: ENDO 06:49 → DAH 06:49 → ENDO 09:00
PROVIDERS: ATTEND Internal Medicine Gastroenterology
DX: R19.4 Change in bowel habit (principal); Z86.010 Personal history of colon polyps; K21.00 Gastro-esophageal reflux disease with esophagitis, without bleeding; E11.22 Type 2 diabetes mellitus with diabetic chronic kidney disease; I12.0 Hypertensive chronic kidney disease with stage 5 chronic kidney disease or end stage renal disease; N18.6 End stage renal disease; K31.84 Gastroparesis; R93.3 Abnormal findings on diagnostic imaging of other parts of digestive tract; K73.0 Chronic persistent hepatitis, not elsewhere classified; E78.00 Pure hypercholesterolemia, unspecified; I25.10 Atherosclerotic heart disease of native coronary artery without angina pectoris; F32.9 Major depressive disorder, single episode, unspecified; F41.9 Anxiety disorder, unspecified; M19.90 Unspecified osteoarthritis, unspecified site; K21.9 Gastro-esophageal reflux disease without esophagitis; Z20.828 Contact with and (suspected) exposure to other viral communicable diseases; Z53.8 Procedure and treatment not carried out for other reasons
CPT/HCPCS: 36415 ×2; 80048; C9803; J7030; U0003

== ENCOUNTER 2020-02-08 15:31 | Inpatient (IN) | payer MEDICARE ==
[~2020-02-08 15:31] MED LIST changes: -SODIUM CHLORIDE 0.9% 1000ML 1,000 ML IV ONE
[2020-02-08 16:12] LABS: BASOPHILS % (AUTO) 1.2 % (0.0-5.0); EOSINOPHILS % (AUTO) 3.1 % (0.0-8.0); HEMATOCRIT 29.4 % (42-54); LYMPHOCYTES % (AUTO) 17.4 % (21.0-51.0); MEAN CORPUSCULAR HGB CONC 31.3 g/dL (32.0-36.0); MEAN CORPUSCULAR VOLUME 95.8 fL (79-99); MONOCYTES % (AUTO) 9.6 % (3.0-13.0); NEUTROPHILS % (AUTO) 68.2 % (40.0-77.0); PLATELET COUNT (AUTO) 206 K/uL (130-400); RED BLOOD CELL COUNT(AUTO) 3.07 MIL/uL (4.50-6.20); RED CELL DISTRIBUTION WIDTH 13.7 % (11.0-15.5); WHITE BLOOD COUNT (AUTO) 6.5 K/uL (4.8-10.8)
[2020-02-08 16:20] LABS: CREATININE 7.1 mg/dL (0.5-1.5); POTASSIUM 5.1 mmol/L (3.5-5.1)
[2020-02-08 16:23] LABS: INR 0.95 (0.85-1.15); PARTIAL THROMBOPLASTIN TIME 26.5 SEC (26.3-35.5); PROTHROMBIN TIME 10.3 SEC (9.6-11.6)
[2020-02-08 16:25] LABS: ALBUMIN 3.3 g/dL (3.5-5.0); BILIRUBIN,TOTAL 0.4 mg/dL (0.2-1.0); TOTAL PROTEIN, SERUM 7.5 g/dL (6.0-8.3)
[2020-02-08 16:36] LABS: B-TYPE NATRIURETIC PEPTIDE 4950 pg/mL (0-100)
[2020-02-08] MEDS ORDERED: ONDANSETRON HCL 4 MG/2 ML VIAL IV PRN (20:00)
[2020-02-08] MEDS: HEPARIN SODIUM 5000UNIT/ML 1ML VIAL SQ SCH (20:00)
[2020-02-08] MEDS: AZITHROMYCIN 500MG+NS 250ML 250 ML IV SCH (20:30)
[2020-02-08] MEDS: CEFTRIAXONE SODIUM 1 GM IVP SCH (20:30)
[2020-02-08] MEDS ORDERED: GLUCAGON 1MG KIT 1 MG ML IM PRN (20:45)
[2020-02-08] MEDS ORDERED: ALBUTEROL INHALER 90MCG/INH IH PRN (20:45)
[2020-02-08] MEDS ORDERED: DEXTROSE 50%-WATER 50 ML DISP.SYRIN IV PRN (20:45)
[2020-02-08] MEDS: INSULIN HUMULIN R 100 UNIT/ML 3ML SQ SCH (21:00)
[2020-02-08] MEDS: METHYLPREDNISOLONE SOD SUCC 40MG/ML 1ML IVP SCH (21:00)
[2020-02-08] MEDS ORDERED: FAMOTIDINE 20MG TAB 20 MG TAB ONE (21:14)
[2020-02-08] MEDS ORDERED: METHYLPREDNISOLONE SOD SUCC 40MG/ML 1ML ONE (21:14)
[2020-02-08] MEDS ORDERED: AZITHROMYCIN 500MG+NS 250ML 250 ML IV ONE (21:15)
[2020-02-08] MEDS ORDERED: CEFTRIAXONE SODIUM 1 GM ONE (21:15)
[2020-02-08] MEDS ORDERED: HEPARIN SODIUM 5000UNIT/ML 1ML VIAL ONE (21:15)
[2020-02-09] MEDS ORDERED: ALBUTEROL INHALER 90MCG/INH IH ONE (01:05)
[2020-02-09 01:20] LABS: APPEARANCE,URINE Clear (CLEAR); BILIRUBIN,URINE Negative (NEGATIVE); COLOR,URINE Yellow (YELLOW); GLUCOSE, URINE (UA) >=1000 mg/dL (NEGATIVE); KETONES,URINE Negative (NEGATIVE); LEUKOCYTE ESTERASE ,URINE Negative (NEGATIVE); NITRATE,URINE Negative (NEGATIVE); OCCULT BLOOD,URINE Negative (NEGATIVE); PH,URINE 8.5 (5.0-8.0); PROTEIN,URINE 300 mg/dL (NEGATIVE)
[2020-02-09 01:29] LABS: BACTERIA,URINE None Seen /HPF (None Seen); RBC,URINE None Seen /HPF (0-1); WBC,URINE None Seen /HPF (0-1)
[2020-02-09] MEDS: HEPARIN SODIUM 5000UNIT/ML 1ML VIAL SQ SCH ×2 (04:00→20:00)
[2020-02-09 05:45] LABS: BASOPHILS % (AUTO) 0.5 % (0.0-5.0); HEMATOCRIT 34.3 % (42-54); LYMPHOCYTES % (AUTO) 8.9 % (21.0-51.0); MEAN CORPUSCULAR HEMOGLOBIN 29.4 pg (27.0-33.0); MEAN CORPUSCULAR HGB CONC 30.9 g/dL (32.0-36.0); MONOCYTES % (AUTO) 1.1 % (3.0-13.0); PLATELET COUNT (AUTO) 227 K/uL (130-400); RED BLOOD CELL COUNT(AUTO) 3.61 MIL/uL (4.50-6.20); RED CELL DISTRIBUTION WIDTH 13.2 % (11.0-15.5); WHITE BLOOD COUNT (AUTO) 6.6 K/uL (4.8-10.8)
[2020-02-09 06:18] LABS: ALBUMIN 3.6 g/dL (3.5-5.0); BILIRUBIN,TOTAL 0.4 mg/dL (0.2-1.0); TOTAL PROTEIN, SERUM 8.1 g/dL (6.0-8.3)
[2020-02-09 06:21] LABS: CREATININE 7.9 mg/dL (0.5-1.5); POTASSIUM 6.4 mmol/L (3.5-5.1)
[2020-02-09 06:26] LABS: B-TYPE NATRIURETIC PEPTIDE > 5000 pg/mL (0-100)
[2020-02-09] MEDS ORDERED: HEPARIN SODIUM 5000UNIT/ML 1ML VIAL ONE (06:51)
[2020-02-09] MEDS ORDERED: METHYLPREDNISOLONE SOD SUCC 40MG/ML 1ML ONE ×2 (06:51→08:55)
[2020-02-09] MEDS ORDERED: INSULIN HUMULIN R 100 UNIT/ML 3ML ONE ×2 (06:52→18:11)
[2020-02-09] MEDS: INSULIN HUMULIN R 100 UNIT/ML 3ML SQ SCH ×2 (07:30→21:00)
[2020-02-09] MEDS ORDERED: CEFTRIAXONE SODIUM 1 GM ONE (08:55)
[2020-02-09] MEDS ORDERED: FUROSEMIDE 10 MG/ML 4ML VIAL ONE (08:55)
[2020-02-09] MEDS ORDERED: FAMOTIDINE/PF 20 MG/2 ML VIAL IV ONE (08:56)
[2020-02-09] MEDS ORDERED: FAMOTIDINE/PF 20 MG/2 ML VIAL IV SCH (09:00)
[2020-02-09] MEDS ORDERED: FUROSEMIDE 10 MG/ML 4ML VIAL IV SCH (09:00)
[2020-02-09] MEDS ORDERED: LIDOCAINE 5% TOPICAL PATCH TP SCH (09:00)
[2020-02-09] MEDS ORDERED: SEVELAMER CARBONATE 800 MG PO SCH (14:00)
[2020-02-09] MEDS ORDERED: ATORVASTATIN CALCIUM 40 MG TABLET ONE (15:24)
[2020-02-09] MEDS ORDERED: TICAGRELOR 90 MG TABLET ONE (15:25)
[2020-02-09] MEDS ORDERED: METOPROLOL TARTRATE 25 MG TAB ONE (15:25)
[2020-02-09] MEDS ORDERED: SEVELAMER HCL 800 MG TABLET PO SCH (17:00)
[2020-02-09 19:00] VITALS: BP 139/66
[2020-02-09] MEDS: CEFTRIAXONE SODIUM 1 GM IVP SCH (20:30)
[2020-02-09] MEDS: METHYLPREDNISOLONE SOD SUCC 40MG/ML 1ML IVP SCH (21:00)
[2020-02-09] MEDS: CALCIUM ACETATE 667 MG CAPSULE PO SCH (21:00)
[2020-02-09] MEDS: AZITHROMYCIN 500MG+NS 250ML 250 ML IV SCH (21:03)
[2020-02-09 23:00] VITALS: BP 133/65
[2020-02-10 03:00] VITALS: BP 148/69
[2020-02-10] MEDS: HEPARIN SODIUM 5000UNIT/ML 1ML VIAL SQ SCH ×2 (03:22→11:59)
[2020-02-10 04:28] LABS: BASOPHILS % (AUTO) 0.1 % (0.0-5.0); HEMATOCRIT 28.5 % (42-54); MEAN CORPUSCULAR HGB CONC 31.9 g/dL (32.0-36.0); MEAN CORPUSCULAR VOLUME 94.1 fL (79-99); MONOCYTES % (AUTO) 2.4 % (3.0-13.0); NEUTROPHILS % (AUTO) 90.2 % (40.0-77.0); PLATELET COUNT (AUTO) 223 K/uL (130-400); RED BLOOD CELL COUNT(AUTO) 3.03 MIL/uL (4.50-6.20); RED CELL DISTRIBUTION WIDTH 13.2 % (11.0-15.5); WHITE BLOOD COUNT (AUTO) 10.2 K/uL (4.8-10.8)
[2020-02-10 04:43] LABS: ALBUMIN 3.2 g/dL (3.5-5.0); BILIRUBIN,DIRECT 0.1 mg/dL (0.0-0.3); BILIRUBIN,TOTAL 0.3 mg/dL (0.2-1.0); CREATININE 6.8 mg/dL (0.5-1.5); POTASSIUM 5.6 mmol/L (3.5-5.1); TOTAL PROTEIN, SERUM 7.2 g/dL (6.0-8.3)
[2020-02-10] MEDS: INSULIN HUMULIN R 100 UNIT/ML 3ML SQ SCH ×3 (06:02→18:07)
[2020-02-10 08:00] VITALS: BP 126/64
[2020-02-10] MEDS: CEFTRIAXONE SODIUM 1 GM IVP SCH (08:38)
[2020-02-10] MEDS: METHYLPREDNISOLONE SOD SUCC 40MG/ML 1ML IVP SCH ×2 (08:38→14:24)
[2020-02-10] MEDS: CALCIUM ACETATE 667 MG CAPSULE PO SCH ×3 (08:39→17:55)
[2020-02-10] MEDS ORDERED: CARVEDILOL 6.25 MG TABLET PO SCH (09:00)
[2020-02-10] MEDS ORDERED: ATORVASTATIN CALCIUM 40 MG TABLET PO SCH (09:00)
[2020-02-10] MEDS ORDERED: CILOSTAZOL 100 MG TAB PO SCH (09:00)
[2020-02-10] MEDS ORDERED: PANTOPRAZOLE SODIUM 40 MG TABLET.DR PO SCH (09:00)
[2020-02-10 12:00] VITALS: BP 129/69
[2020-02-10] MEDS ORDERED: SODIUM POLYSTYRENE SULFONATE 15 GM/60 ML ML PO STA (15:29)
[2020-02-10 16:30] VITALS: BP 189/93
[2020-02-10] MEDS ORDERED: SEVE800 PO ×2 (17:39)
--- NOTE | 2020-02-10 20:11 | NUR ---
INITIAL SW spoke to patient's ex-spouse, Leah Ng. Patient lives alone. No home health but does have PHC. Ex-spouse does not remember the name of the agency or hours he receives. Dialysis: TTS at 5am at [facility] in [place]. Medical transportation helps to transport patient to and from dialysis. DME: wheelchair, rollator, O2 concentrator/portable, BPM, glucometer (uses insulin). Patient needs help with ADL's and drives as needed. PCP is Dr. Greg Ng. Pharmacy [facility] in [place]. DCP is home. Addendum: 02/10/20 at 2014 by HILL MORA SS Amended: Links added.
== END 2020-02-10 20:15 | disposition home or self-care (01) | DRG 177 ==
LOC: EDH 15:31 → EDHIP 19:53 → 2CV 02-09 18:30
PROVIDERS: ADMIT Internal Medicine; ATTEND Internal Medicine
PROC: 5A1D70Z Performance of Urinary Filtration, Intermittent, Less than 6 Hours Per Day (ICD-10-PCS; principal; 2020-02-09)
DX: U07.1 COVID-19 (principal); J12.89 Other viral pneumonia; J96.21 Acute and chronic respiratory failure with hypoxia; N18.6 End stage renal disease; E87.1 Hypo-osmolality and hyponatremia; I12.0 Hypertensive chronic kidney disease with stage 5 chronic kidney disease or end stage renal disease; J81.1 Chronic pulmonary edema; J98.11 Atelectasis; E03.9 Hypothyroidism, unspecified; E78.00 Pure hypercholesterolemia, unspecified; E11.22 Type 2 diabetes mellitus with diabetic chronic kidney disease; E78.5 Hyperlipidemia, unspecified; E87.5 Hyperkalemia; E87.70 Fluid overload, unspecified; Z99.2 Dependence on renal dialysis; Z91.19 Patient's noncompliance with other medical treatment and regimen; Z83.3 Family history of diabetes mellitus; Z82.5 Family history of asthma and other chronic lower respiratory diseases; Z82.49 Family history of ischemic heart disease and other diseases of the circulatory system; Z82.3 Family history of stroke; Z82.0 Family history of epilepsy and other diseases of the nervous system
CPT/HCPCS: 36415; 71045; 71250; 76705; 76770; 80048; 80053; 80076; 81001; 82550; 82728; 82948; 83880; 84145; 84484; 85025; 85378; 85610; 85730; 86140; 87040; 87426; 90935; 93005; 93306; 93356; G0378; J0456; J0696; J1644; J1815; J1940; J2920; J3490

== ENCOUNTER 2020-05-28 16:30 | Inpatient (IN) | payer MEDICARE ==
[~2020-05-28] VITALS: Ht 162.6 cm; Wt 115.7 kg
[~2020-05-28 16:30] MED LIST changes: +SEVE800 PO
[2020-05-28 17:34] LABS: BASOPHILS % (AUTO) 0.8 % (0.0-5.0); EOSINOPHILS % (AUTO) 2.7 % (0.0-8.0); HEMATOCRIT 34.6 % (42-54); LYMPHOCYTES % (AUTO) 13.1 % (21.0-51.0); MEAN CORPUSCULAR HEMOGLOBIN 28.8 pg (27.0-33.0); MEAN CORPUSCULAR HGB CONC 31.8 g/dL (32.0-36.0); MEAN CORPUSCULAR VOLUME 90.6 fL (79-99); PLATELET COUNT (AUTO) 269 K/uL (130-400); RED BLOOD CELL COUNT(AUTO) 3.82 MIL/uL (4.50-6.20); RED CELL DISTRIBUTION WIDTH 14.4 % (11.0-15.5); WHITE BLOOD COUNT (AUTO) 10.6 K/uL (4.8-10.8)
[2020-05-28 17:51] LABS: INR 1.01 (0.85-1.15)
[2020-05-28] MEDS ORDERED: ONDANSETRON 4MG TABLET ONE (17:52)
[2020-05-28] MEDS ORDERED: ASPIRIN 325 MG TABLET ONE (17:52)
[2020-05-28] MEDS ORDERED: MORPHINE 2 MG SYG ONE (17:52)
[2020-05-28 18:02] LABS: ALBUMIN 3.5 g/dL (3.5-5.0); BILIRUBIN,TOTAL 0.3 mg/dL (0.2-1.0); TOTAL PROTEIN, SERUM 8.1 g/dL (6.0-8.3)
[2020-05-28 18:07] LABS: CREATININE 9.7 mg/dL (0.5-1.5); POTASSIUM 6.2 mmol/L (3.5-5.1)
[2020-05-28] MEDS ORDERED: CALCIUM GLUC 1GM/10ML VIAL IV ONE (18:31)
[2020-05-28] MEDS ORDERED: DEXTROSE 50%-WATER 50 ML DISP.SYRIN IV ONE (18:31)
[2020-05-28] MEDS ORDERED: SODIUM BICARB 50MEQ 50ML VIAL 50 ML ONE (18:31)
[2020-05-28] MEDS ORDERED: INSULIN HUMULIN R 100 UNIT/ML 3ML ONE (18:33)
[2020-05-28] MEDS ORDERED: 0.9%NACL 100ML 100 ML IV ONE (18:34)
[2020-05-28] MEDS ORDERED: 0.9%NACL 50ML 50 ML IV ONE (18:42)
[2020-05-28] MEDS ORDERED: GLUCAGON 1MG KIT 1 MG ML IM PRN (19:00)
[2020-05-28] MEDS ORDERED: DEXTROSE 50%-WATER 50 ML DISP.SYRIN IV PRN (19:00)
[2020-05-28] MEDS ORDERED: ONDANSETRON 4MG INJ IVP PRN (19:00)
[2020-05-28] MEDS: INSULIN R PO SS1 SQ SCH (21:00)
[2020-05-29 01:19] VITALS: BP 161/85
[2020-05-29] MEDS ORDERED: MORPHINE 2 MG SYG IV ONE (02:30)
[2020-05-29] MEDS ORDERED: MORPHINE 2 MG SYG IVP PRN (02:30)
[2020-05-29] MEDS ORDERED: HYDROCODONE/ACETAMINOPHEN 5/325 MG TAB PO PRN (02:30)
[2020-05-29] MEDS ORDERED: MORPHINE 2 MG SYG ONE (02:44)
[2020-05-29] MEDS ORDERED: HYDROMORPHONE 1 MG INJ ONE (05:13)
[2020-05-29] MEDS ORDERED: HYDROMORPHONE 0.5 MG SYG (0.5MG/0.5ML) IVP PRN (05:15)
[2020-05-29] MEDS ORDERED: HYDROMORPHONE 2 MG VIAL (2MG/ML) IVP PRN (05:15)
[2020-05-29] MEDS: INSULIN R PO SS1 SQ SCH ×4 (06:28→20:08)
[2020-05-29 06:44] VITALS: BP 158/75
[2020-05-29] MEDS ORDERED: CLON0.1T PO (07:48)
[2020-05-29] MEDS ORDERED: LINA5TAB PO (07:48)
[2020-05-29] MEDS ORDERED: INSU100V37 SQ (07:48)
[2020-05-29] MEDS ORDERED: AMLO-258 PO (07:48)
[2020-05-29] MEDS: ASPIRIN 81MG CHEW TAB PO SCH (08:18)
[2020-05-29 08:31] VITALS: BP 157/76
[2020-05-29 11:37] LABS: MEAN CORPUSCULAR HEMOGLOBIN 29.6 pg (27.0-33.0); MEAN CORPUSCULAR VOLUME 92.3 fL (79-99); RED BLOOD CELL COUNT(AUTO) 3.79 MIL/uL (4.50-6.20); RED CELL DISTRIBUTION WIDTH 14.1 % (11.0-15.5); WHITE BLOOD COUNT (AUTO) 8.7 K/uL (4.8-10.8)
[2020-05-29 11:47] LABS: POTASSIUM 5.1 mmol/L (3.5-5.1)
[2020-05-29 11:54] LABS: CREATININE 8.4 mg/dL (0.5-1.5)
[2020-05-29 12:16] VITALS: BP 151/76
[2020-05-29 16:43] VITALS: BP 145/71
[2020-05-29] MEDS ORDERED: BENZONATATE 100 MG PO SCH (17:45)
[2020-05-29] MEDS ORDERED: BENZONATATE 100 MG CAPSULE PO SCH (18:00)
[2020-05-29] MEDS ORDERED: BENZONATATE 100 MG CAPSULE PO ONE (19:36)
[2020-05-29] MEDS ORDERED: CALCIUM AC 667MG CAP PO ONE (19:36)
[2020-05-29] MEDS: BENZONATATE 100 MG CAPSULE PO SCH (19:40)
[2020-05-29] MEDS: CALCIUM AC 667MG CAP PO SCH (19:40)
[2020-05-29] MEDS: CLONIDINE HCL 0.1 MG TABLET PO SCH (19:40)
[2020-05-29] MEDS: ACETAMINOPHEN 325 MG TAB PO PRN (19:41)
[2020-05-29 20:46] VITALS: BP 156/68
[2020-05-29] MEDS ORDERED: SEVELAMER CARBONATE 800 MG PO SCH (21:00)
[2020-05-30 00:06] VITALS: BP 140/73
[2020-05-30 03:19] VITALS: BP 153/52
[2020-05-30 03:53] LABS: MEAN CORPUSCULAR HEMOGLOBIN 28.9 pg (27.0-33.0); MEAN CORPUSCULAR HGB CONC 31.4 g/dL (32.0-36.0); MEAN CORPUSCULAR VOLUME 92.3 fL (79-99); RED BLOOD CELL COUNT(AUTO) 4.01 MIL/uL (4.50-6.20); WHITE BLOOD COUNT (AUTO) 9.3 K/uL (4.8-10.8)
[2020-05-30 04:16] LABS: CREATININE 6.8 mg/dL (0.5-1.5); MAGNESIUM 2.6 mg/dL (1.80-2.40); PHOSPHORUS 8.2 mg/dL (2.5-4.9); POTASSIUM 5.1 mmol/L (3.5-5.1)
[2020-05-30] MEDS: BENZONATATE 100 MG CAPSULE PO SCH ×3 (04:18→23:06)
[2020-05-30] MEDS: INSULIN R PO SS1 SQ SCH ×4 (06:01→21:00)
[2020-05-30 08:00] VITALS: BP 135/70
[2020-05-30] MEDS: INSULIN GLARGINE 100 UNITS/ML 10 ML VIAL SQ SCH (09:00)
[2020-05-30] MEDS ORDERED: NON-FORMULARY MEDICATION 1 EACH (Amlodipine Besylate 10 MG) PO SCH (09:00)
[2020-05-30] MEDS ORDERED: INSULIN DEGLUDEC 25 UNIT SQ SCH (09:00)
[2020-05-30] MEDS: SEVELAMER HCL 800 MG TABLET PO SCH ×3 (09:07→17:47)
[2020-05-30] MEDS: CALCIUM AC 667MG CAP PO SCH ×4 (09:07→23:04)
[2020-05-30] MEDS: AMLODIPINE 5 MG TAB PO SCH (09:07)
[2020-05-30] MEDS: CILOSTAZOL 100 MG TAB PO SCH (09:08)
[2020-05-30] MEDS: ASCORBIC ACID 500 MG TAB PO SCH (09:08)
[2020-05-30] MEDS: LOSARTAN 100 MG TABLET PO SCH (09:08)
[2020-05-30] MEDS: CARVEDILOL 6.25 MG TABLET PO SCH (09:08)
[2020-05-30] MEDS: CLONIDINE HCL 0.1 MG TABLET PO SCH ×2 (09:08→23:05)
[2020-05-30] MEDS: LINAGLIPTIN 5 MG TABLET PO SCH (09:09)
[2020-05-30] MEDS: ASPIRIN 81MG CHEW TAB PO SCH (09:09)
[2020-05-30 10:13] LABS: HEPATITIS A ANTIBODY IGM Negative (Negative); HEPATITIS B CORE IGM Negative (Negative); HEPATITIS Bs ANTIGEN SCREEN P Negative (Negative)
[2020-05-30 10:17] VITALS: BP 135/70
[2020-05-30] MEDS ORDERED: REGADENOSON 0.4 MG/5 ML PF SYG IVP SCH (12:30)
[2020-05-30 18:23] VITALS: BP 154/78
[2020-05-30] MEDS: ACETAMINOPHEN 325 MG TAB PO PRN (18:43)
[2020-05-30 19:55] VITALS: BP 138/68
[2020-05-31 00:10] VITALS: BP 156/69
[2020-05-31 04:03] VITALS: BP 158/83
[2020-05-31 06:10] LABS: EOSINOPHILS % (AUTO) 4.5 % (0.0-8.0); LYMPHOCYTES % (AUTO) 15.9 % (21.0-51.0); MEAN CORPUSCULAR HEMOGLOBIN 28.9 pg (27.0-33.0); MEAN CORPUSCULAR HGB CONC 31.8 g/dL (32.0-36.0); MEAN CORPUSCULAR VOLUME 90.9 fL (79-99); MONOCYTES % (AUTO) 9.1 % (3.0-13.0); NEUTROPHILS % (AUTO) 69.1 % (40.0-77.0); PLATELET COUNT (AUTO) 232 K/uL (130-400); RED BLOOD CELL COUNT(AUTO) 3.74 MIL/uL (4.50-6.20); RED CELL DISTRIBUTION WIDTH 13.8 % (11.0-15.5)
[2020-05-31 06:37] LABS: MAGNESIUM 2.8 mg/dL (1.80-2.40); PHOSPHORUS 9.4 mg/dL (2.5-4.9); POTASSIUM 5.3 mmol/L (3.5-5.1)
[2020-05-31] MEDS: BENZONATATE 100 MG CAPSULE PO SCH ×3 (06:43→20:40)
[2020-05-31] MEDS: INSULIN R PO SS1 SQ SCH ×4 (06:47→20:37)
[2020-05-31 08:00] VITALS: BP 138/78
[2020-05-31 11:39] VITALS: BP 143/67
[2020-05-31 16:00] VITALS: BP 155/92
[2020-05-31] MEDS: AMLODIPINE 5 MG TAB PO SCH (16:32)
[2020-05-31] MEDS: CILOSTAZOL 100 MG TAB PO SCH (16:33)
[2020-05-31] MEDS: LINAGLIPTIN 5 MG TABLET PO SCH (16:33)
[2020-05-31] MEDS: CALCIUM AC 667MG CAP PO SCH ×3 (16:33→20:40)
[2020-05-31] MEDS: ASCORBIC ACID 500 MG TAB PO SCH (16:33)
[2020-05-31] MEDS: LOSARTAN 100 MG TABLET PO SCH (16:33)
[2020-05-31] MEDS: CLONIDINE HCL 0.1 MG TABLET PO SCH ×2 (16:34→20:41)
[2020-05-31] MEDS: CARVEDILOL 6.25 MG TABLET PO SCH (16:34)
[2020-05-31] MEDS: ASPIRIN 81MG CHEW TAB PO SCH (16:35)
[2020-05-31] MEDS: SEVELAMER HCL 800 MG TABLET PO SCH ×2 (16:40→16:50)
[2020-05-31] MEDS: INSULIN GLARGINE 100 UNITS/ML 10 ML VIAL SQ SCH (16:48)
[2020-05-31 19:45] VITALS: BP 132/61
[2020-05-31] MEDS ORDERED: DEXTROSE 50%-WATER 50 ML DISP.SYRIN IV PRN (23:15)
[2020-05-31] MEDS ORDERED: GLUCAGON 1MG KIT 1 MG ML IM PRN (23:15)
[2020-06-01 00:07] VITALS: BP 142/72
[2020-06-01] MEDS: CLONIDINE HCL 0.1 MG TABLET PO SCH ×2 (00:25→09:37)
[2020-06-01 04:05] VITALS: BP 142/92
[2020-06-01] MEDS: INSULIN R PO SS1 SQ SCH (06:10)
[2020-06-01] MEDS: BENZONATATE 100 MG CAPSULE PO SCH (06:17)
[2020-06-01 08:07] LABS: EOSINOPHILS % (AUTO) 3.3 % (0.0-8.0); HEMATOCRIT 38.1 % (42-54); LYMPHOCYTES % (AUTO) 14.5 % (21.0-51.0); MEAN CORPUSCULAR HEMOGLOBIN 28.7 pg (27.0-33.0); MEAN CORPUSCULAR HGB CONC 31.2 g/dL (32.0-36.0); MEAN CORPUSCULAR VOLUME 91.8 fL (79-99); NEUTROPHILS % (AUTO) 71.8 % (40.0-77.0); PLATELET COUNT (AUTO) 224 K/uL (130-400); RED BLOOD CELL COUNT(AUTO) 4.15 MIL/uL (4.50-6.20); RED CELL DISTRIBUTION WIDTH 13.5 % (11.0-15.5); WHITE BLOOD COUNT (AUTO) 11.1 K/uL (4.8-10.8)
[2020-06-01 08:26] LABS: ALBUMIN 3.4 g/dL (3.5-5.0); BILIRUBIN,TOTAL 0.4 mg/dL (0.2-1.0); TOTAL PROTEIN, SERUM 7.8 g/dL (6.0-8.3)
[2020-06-01] MEDS ORDERED: KAYEXALATE 15GM/60ML ONE (09:28)
[2020-06-01] MEDS ORDERED: KAYEXALATE 15GM/60ML PO SCH (09:30)
[2020-06-01] MEDS: SEVELAMER HCL 800 MG TABLET PO SCH (09:35)
[2020-06-01] MEDS: CALCIUM AC 667MG CAP PO SCH (09:36)
[2020-06-01] MEDS: CARVEDILOL 6.25 MG TABLET PO SCH (09:36)
[2020-06-01] MEDS: AMLODIPINE 5 MG TAB PO SCH (09:36)
[2020-06-01] MEDS: LINAGLIPTIN 5 MG TABLET PO SCH (09:36)
[2020-06-01] MEDS: LOSARTAN 100 MG TABLET PO SCH (09:37)
[2020-06-01] MEDS: ASCORBIC ACID 500 MG TAB PO SCH (09:37)
[2020-06-01] MEDS: ASPIRIN 81MG CHEW TAB PO SCH (09:37)
[2020-06-01] MEDS: CILOSTAZOL 100 MG TAB PO SCH (09:37)
[2020-06-01 09:40] VITALS: BP 155/77
[2020-06-01] MEDS: INSULIN GLARGINE 100 UNITS/ML 10 ML VIAL SQ SCH (09:53)
[2020-09-16] MEDS ORDERED: ROSU5TAB12 PO (11:46)
[2020-09-16] MEDS ORDERED: LOSA100T58 PO (11:46)
[2020-09-16] MEDS ORDERED: AMLO-258 PO (11:48)
[2020-09-16] MEDS ORDERED: CLON0.1T PO (11:48)
[2020-09-16] MEDS ORDERED: CILO100T PO (11:48)
[2020-09-16] MEDS ORDERED: CARV25TA PO (11:48)
[2020-09-16] MEDS ORDERED: INSU100V37 SQ (11:52)
[2020-09-16] MEDS ORDERED: [UNRECOGNIZED DRUG - OTHER] PO (11:53)
[2020-09-17] MEDS ORDERED: ASPI-449 PO (07:26)
== END 2020-06-01 14:51 | disposition home or self-care (01) | DRG 640 ==
LOC: EDH 16:30 → OBSVTOIN 18:25 → EDHIP 18:25 → INTOOBSV 18:25 → 4DH 05-29 00:01
PROVIDERS: ADMIT Internal Medicine Nephrology; ATTEND Internal Medicine Nephrology
PROC: 5A1D70Z Performance of Urinary Filtration, Intermittent, Less than 6 Hours Per Day (ICD-10-PCS; principal; 2020-05-28)
PROC: 5A1D70Z Performance of Urinary Filtration, Intermittent, Less than 6 Hours Per Day (ICD-10-PCS; 2020-05-29)
PROC: 5A1D70Z Performance of Urinary Filtration, Intermittent, Less than 6 Hours Per Day (ICD-10-PCS; 2020-05-31)
DX: E87.5 Hyperkalemia (principal); N18.6 End stage renal disease; I12.0 Hypertensive chronic kidney disease with stage 5 chronic kidney disease or end stage renal disease; Z68.41 Body mass index [BMI] 40.0-44.9, adult; I24.8 Other forms of acute ischemic heart disease; E87.70 Fluid overload, unspecified; I25.119 Atherosclerotic heart disease of native coronary artery with unspecified angina pectoris; E11.22 Type 2 diabetes mellitus with diabetic chronic kidney disease; Z20.822 Contact with and (suspected) exposure to COVID-19; D63.8 Anemia in other chronic diseases classified elsewhere; E11.51 Type 2 diabetes mellitus with diabetic peripheral angiopathy without gangrene; E78.5 Hyperlipidemia, unspecified; Z86.16 Personal history of COVID-19; E83.39 Other disorders of phosphorus metabolism; J45.909 Unspecified asthma, uncomplicated; Z91.11 Patient's noncompliance with dietary regimen; Z95.5 Presence of coronary angioplasty implant and graft; Z99.2 Dependence on renal dialysis; E66.9 Obesity, unspecified
CPT/HCPCS: 36415; 71045; 74176; 78452; 80048; 80053; 80074; 82550; 82947; 82948; 83735; 84100; 84484; 85025; 85027; 85610; 85730; 87426; 90935; 93005; 93017; 93306; 93356; 96374; 99291; A9500; G0378; J0610; J1170; J1815; J2785; J3490; J7070; Q0162; U0003

== ENCOUNTER 2020-06-17 08:14 | Inpatient (IN) | payer MEDICARE ==
[~2020-06-17] VITALS: Ht 161.9 cm; Wt 124.3 kg
[~2020-06-17 08:14] MED LIST changes: +AMLO-258 PO; -ATOR40TA69 PO; -CALC-866 PO; +CLON0.1T PO; +INSU100V37 SQ; +LINA5TAB PO; -LOPE2CAP PO; -METO5TAB2 PO; -PANT40TA54 PO; -SEVE800 PO; -SUCR500T PO; -ZINC50TA64 PO
[2020-06-17 09:18] LABS: BASOPHILS % (AUTO) 0.8 % (0.0-5.0); EOSINOPHILS % (AUTO) 3.6 % (0.0-8.0); HEMATOCRIT 32.3 % (42-54); LYMPHOCYTES % (AUTO) 9.2 % (21.0-51.0); MEAN CORPUSCULAR HEMOGLOBIN 29.4 pg (27.0-33.0); MEAN CORPUSCULAR HGB CONC 31.6 g/dL (32.0-36.0); MEAN CORPUSCULAR VOLUME 93.1 fL (79-99); MONOCYTES % (AUTO) 7.2 % (3.0-13.0); NEUTROPHILS % (AUTO) 78.4 % (40.0-77.0); PLATELET COUNT (AUTO) 225 K/uL (130-400); RED BLOOD CELL COUNT(AUTO) 3.47 MIL/uL (4.50-6.20); RED CELL DISTRIBUTION WIDTH 14.9 % (11.0-15.5); WHITE BLOOD COUNT (AUTO) 11.9 K/uL (4.8-10.8)
[2020-06-17 09:29] LABS: PROTHROMBIN TIME 10.9 SEC (9.6-11.6)
[2020-06-17 09:31] LABS: ALBUMIN 3.7 g/dL (3.5-5.0); BILIRUBIN,TOTAL 0.4 mg/dL (0.2-1.0); PARTIAL THROMBOPLASTIN TIME 29.7 SEC (26.3-35.5); TOTAL PROTEIN, SERUM 8.2 g/dL (6.0-8.3)
[2020-06-17 09:38] LABS: B-TYPE NATRIURETIC PEPTIDE 3030 pg/mL (0-100)
[2020-06-17 09:39] LABS: CREATININE 9.8 mg/dL (0.5-1.5)
[2020-06-17] MEDS ORDERED: 0.9%NACL 50ML 50 ML IV ONE ×2 (09:54→09:55)
[2020-06-17] MEDS ORDERED: CALCIUM GLUC 1GM/10ML VIAL IV ONE (09:54)
[2020-06-17] MEDS ORDERED: DEXTROSE 50%-WATER 50 ML DISP.SYRIN IV ONE ×2 (09:56→11:38)
[2020-06-17] MEDS ORDERED: INSULIN HUMULIN R 100 UNIT/ML 3ML ONE (09:58)
[2020-06-17] MEDS ORDERED: IPRATROPIUM/ALBUTEROL SULFATE 3 ML SOLUTION IH ONE (10:32)
[2020-06-17] MEDS ORDERED: ONDANSETRON 4MG INJ IVP PRN (12:00)
[2020-06-17] MEDS ORDERED: MAG/ALUM/SIMETH 30 ML UDCUP PO PRN (12:00)
[2020-06-18] MEDS ORDERED: ACETAMINOPHEN 325 MG TAB ONE ×2 (03:39→09:26)
[2020-06-18 06:05] LABS: HEMATOCRIT 31.7 % (42-54); MEAN CORPUSCULAR HEMOGLOBIN 30.6 pg (27.0-33.0); MEAN CORPUSCULAR HGB CONC 32.8 g/dL (32.0-36.0); MEAN CORPUSCULAR VOLUME 93.2 fL (79-99); RED BLOOD CELL COUNT(AUTO) 3.4 MIL/uL (4.50-6.20); RED CELL DISTRIBUTION WIDTH 14.8 % (11.0-15.5); WHITE BLOOD COUNT (AUTO) 10.6 K/uL (4.8-10.8)
[2020-06-18 06:23] LABS: HEMOGLOBIN A1C 8.7 % (4.0-6.0)
[2020-06-18 06:30] LABS: ALBUMIN 3.4 g/dL (3.5-5.0); BILIRUBIN,TOTAL 0.5 mg/dL (0.2-1.0); PHOSPHORUS 9.3 mg/dL (2.5-4.9); TOTAL PROTEIN, SERUM 7.6 g/dL (6.0-8.3)
[2020-06-18 06:34] LABS: CREATININE 9.3 mg/dL (0.5-1.5)
[2020-06-18] MEDS: Vitamin B Complex/Vit C/Folic Acid PO SCH (09:00)
[2020-06-18] MEDS ORDERED: Vitamin B Complex/Vit C/Folic Acid ONE (09:25)
[2020-06-18 17:45] VITALS: BP 157/74
[2020-06-18] MEDS ORDERED: ASPI-1443 PO (18:52)
[2020-06-18] MEDS ORDERED: ROSU5TAB12 PO (18:52)
[2020-06-18 20:00] VITALS: BP 191/90
[2020-06-18] MEDS ORDERED: PIOG15TA6 PO (22:46)
[2020-06-18] MEDS ORDERED: LACT10SO9 PO (22:46)
[2020-06-18] MEDS ORDERED: LACTULOSE 20 GM/30 ML UDCUP PO PRN (23:00)
[2020-06-19] VITALS (7 sets, daily range): BP systolic 105–150; BP diastolic 42–79
[2020-06-19 05:04] LABS: HEMATOCRIT 30.4 % (42-54); MEAN CORPUSCULAR HEMOGLOBIN 29.2 pg (27.0-33.0); MEAN CORPUSCULAR HGB CONC 31.6 g/dL (32.0-36.0); MEAN CORPUSCULAR VOLUME 92.4 fL (79-99); RED BLOOD CELL COUNT(AUTO) 3.29 MIL/uL (4.50-6.20); RED CELL DISTRIBUTION WIDTH 14.4 % (11.0-15.5); WHITE BLOOD COUNT (AUTO) 9.9 K/uL (4.8-10.8)
[2020-06-19 05:37] LABS: MAGNESIUM 3.2 mg/dL (1.80-2.40); PHOSPHORUS 10.7 mg/dL (2.5-4.9); POTASSIUM 5.9 mmol/L (3.5-5.1)
[2020-06-19 05:50] LABS: CREATININE 11.1 mg/dL (0.5-1.5)
[2020-06-19] MEDS: CALCIUM AC 667MG CAP PO SCH ×3 (07:53→16:23)
[2020-06-19] MEDS: Vitamin B Complex/Vit C/Folic Acid PO SCH (07:53)
[2020-06-19] MEDS: LINAGLIPTIN 5 MG TABLET PO SCH (07:56)
[2020-06-19] MEDS: SEVELAMER HCL 800 MG TABLET PO SCH ×3 (12:00→16:26)
[2020-06-19] MEDS: CARVEDILOL 6.25 MG TABLET PO SCH ×2 (16:22→19:12)
[2020-06-19] MEDS: CILOSTAZOL 100 MG TAB PO SCH ×2 (16:23→19:13)
[2020-06-19] MEDS: LOSARTAN 100 MG TABLET PO SCH (16:23)
[2020-06-19] MEDS: CLONIDINE HCL 0.1 MG TABLET PO SCH ×2 (16:24→19:12)
[2020-06-19] MEDS: ASPIRIN 81 MG EC TAB PO SCH (16:24)
[2020-06-19] MEDS: AMLODIPINE 5 MG TAB PO SCH (16:25)
[2020-06-19] MEDS ORDERED: ATORVASTATIN 10 MG TABLET ONE (19:24)
[2020-06-19] MEDS: ATORVASTATIN 10 MG TABLET PO SCH (19:59)
[2020-06-20] VITALS (12 sets, daily range): BP systolic 110–141; BP diastolic 61–84
[2020-06-20 05:20] LABS: BASOPHILS % (AUTO) 1.3 % (0.0-5.0); EOSINOPHILS % (AUTO) 3.5 % (0.0-8.0); HEMATOCRIT 31.4 % (42-54); LYMPHOCYTES % (AUTO) 12.7 % (21.0-51.0); MEAN CORPUSCULAR HEMOGLOBIN 29.6 pg (27.0-33.0); MEAN CORPUSCULAR HGB CONC 31.5 g/dL (32.0-36.0); MONOCYTES % (AUTO) 11.6 % (3.0-13.0); NEUTROPHILS % (AUTO) 70.5 % (40.0-77.0); PLATELET COUNT (AUTO) 197 K/uL (130-400); RED BLOOD CELL COUNT(AUTO) 3.34 MIL/uL (4.50-6.20); RED CELL DISTRIBUTION WIDTH 14.4 % (11.0-15.5); WHITE BLOOD COUNT (AUTO) 7.9 K/uL (4.8-10.8)
[2020-06-20 05:30] LABS: INR 1.06 (0.85-1.15); PROTHROMBIN TIME 11.5 SEC (9.6-11.6)
[2020-06-20 05:32] LABS: PARTIAL THROMBOPLASTIN TIME 29.9 SEC (26.3-35.5)
[2020-06-20 05:39] LABS: CREATININE 8.9 mg/dL (0.5-1.5)
[2020-06-20] MEDS ORDERED: MIDAZOLAM HCL 1 MG/ML 2ML VIAL ONE (07:10)
[2020-06-20] MEDS ORDERED: IOHEXOL 350 MG/ML 100ML INFUS..BTL IV ONE (07:10)
[2020-06-20] MEDS ORDERED: IOHEXOL-350 50ML VIAL IV ONE (07:10)
[2020-06-20] MEDS ORDERED: NITROGLYCERIN 2 MG VIAL IV ONE (07:10)
[2020-06-20] MEDS ORDERED: SODIUM BICARB 50MEQ 50ML VIAL 50 ML ONE (07:10)
[2020-06-20] MEDS ORDERED: BIVALIRUDIN 250 MG/VIAL IV ONE (07:10)
[2020-06-20] MEDS ORDERED: FENTANYL CITRATE PF 50 MCG/1 ML 2ML VIAL ONE (07:11)
[2020-06-20] MEDS ORDERED: LIDOCAINE HCL 400MG/20ML VIAL ONE (07:11)
[2020-06-20] MEDS: SEVELAMER HCL 800 MG TABLET PO SCH ×3 (07:47→17:04)
[2020-06-20] MEDS: CALCIUM AC 667MG CAP PO SCH ×3 (07:47→17:04)
[2020-06-20] MEDS: Vitamin B Complex/Vit C/Folic Acid PO SCH (10:01)
[2020-06-20] MEDS: ASPIRIN 81 MG EC TAB PO SCH (10:01)
[2020-06-20] MEDS: CILOSTAZOL 100 MG TAB PO SCH ×2 (10:01→20:22)
[2020-06-20] MEDS: LINAGLIPTIN 5 MG TABLET PO SCH (10:01)
[2020-06-20] MEDS: LOSARTAN 100 MG TABLET PO SCH (12:21)
[2020-06-20] MEDS: AMLODIPINE 5 MG TAB PO SCH (12:29)
[2020-06-20] MEDS: CLONIDINE HCL 0.1 MG TABLET PO SCH ×2 (12:32→20:11)
[2020-06-20] MEDS: CARVEDILOL 6.25 MG TABLET PO SCH ×2 (12:32→20:10)
[2020-06-20 13:43] LABS: HEPATITIS B CORE IGM SEE SEPARATE RESULT (Negative); HEPATITIS Bs ANTIGEN SCREEN P SEE SEPARATE REPOR (Negative)
[2020-06-20] MEDS ORDERED: CEFAZOLIN SODIUM 1 GM VIAL IVP PRN (19:00)
[2020-06-20] MEDS: ATORVASTATIN 10 MG TABLET PO SCH (20:08)
[2020-06-20] MEDS ORDERED: ALPRAZOLAM 0.5 MG TABLET PO SCH (21:00)
[2020-06-21] VITALS (22 sets, daily range): BP systolic 92–150; BP diastolic 40–73
[2020-06-21 05:52] LABS: HEMATOCRIT 25.8 % (42-54); MEAN CORPUSCULAR HEMOGLOBIN 30.1 pg (27.0-33.0); MEAN CORPUSCULAR HGB CONC 32.6 g/dL (32.0-36.0); MEAN CORPUSCULAR VOLUME 92.5 fL (79-99); PLATELET COUNT (AUTO) 167 K/uL (130-400); RED BLOOD CELL COUNT(AUTO) 2.79 MIL/uL (4.50-6.20); RED CELL DISTRIBUTION WIDTH 14.4 % (11.0-15.5); WHITE BLOOD COUNT (AUTO) 8.6 K/uL (4.8-10.8)
[2020-06-21 06:06] LABS: ALBUMIN 3.1 g/dL (3.5-5.0); BILIRUBIN,TOTAL 0.3 mg/dL (0.2-1.0); TOTAL PROTEIN, SERUM 6.7 g/dL (6.0-8.3)
[2020-06-21 06:14] LABS: B-TYPE NATRIURETIC PEPTIDE 2730 pg/mL (0-100); CREATININE 10.7 mg/dL (0.5-1.5)
[2020-06-21 06:43] LABS: INR 1.03 (0.85-1.15); PROTHROMBIN TIME 11.2 SEC (9.6-11.6)
[2020-06-21 06:44] LABS: PARTIAL THROMBOPLASTIN TIME 30.2 SEC (26.3-35.5)
[2020-06-21 06:53] LABS: BAND NEUTROPHILS % (MANUAL) 3 % (0-2); BASOPHILS % (MANUAL) 3 % (0-2); EOSINOPHILS % (MANUAL) 1 % (1-6); LYMPHOCYTES % (MANUAL) 6 % (22-44); MAN.DIFF COMMENT-IMPRESSION MANUAL DIFFERENTIAL; MONOCYTES % (MANUAL) 7 % (2-9); PLATELET MORPHOLOGY COMMENT ADEQUATE; SEGMENTED NEUTROPHILS % 80 % (40-70)
[2020-06-21] MEDS: CALCIUM AC 667MG CAP PO SCH ×3 (07:41→16:21)
[2020-06-21] MEDS: SEVELAMER HCL 800 MG TABLET PO SCH ×3 (08:00→16:22)
[2020-06-21] MEDS: ASPIRIN 81 MG EC TAB PO SCH (08:01)
[2020-06-21] MEDS: Vitamin B Complex/Vit C/Folic Acid PO SCH (09:00)
[2020-06-21] MEDS: CILOSTAZOL 100 MG TAB PO SCH ×2 (09:00→21:00)
[2020-06-21] MEDS: LOSARTAN 100 MG TABLET PO SCH (09:00)
[2020-06-21] MEDS: CLONIDINE HCL 0.1 MG TABLET PO SCH (09:00)
[2020-06-21] MEDS: LINAGLIPTIN 5 MG TABLET PO SCH (09:00)
[2020-06-21] MEDS: CARVEDILOL 6.25 MG TABLET PO SCH (09:00)
[2020-06-21] MEDS: AMLODIPINE 5 MG TAB PO SCH (09:00)
[2020-06-21] MEDS ORDERED: PAPAVERINE HCL 30 MG/ML 2ML VIAL ONE (10:12)
[2020-06-21] MEDS ORDERED: OCTYL 2-CYANOACRYLATE 1 EACH TP ONE (10:12)
[2020-06-21] MEDS ORDERED: CEFAZOLIN SODIUM 1 GM VIAL ONE (10:12)
[2020-06-21] MEDS ORDERED: NITROGLYCERIN 50MG/D5W 250ML 1 BOT ONE (10:13)
[2020-06-21] MEDS ORDERED: AMINOCAPROIC ACID 5,000MG VIAL 15,000 MG in 0.9% NACL 500ML IV.SOLN 420 ML IV PRN (10:15)
[2020-06-21] MEDS ORDERED: EPINEPHRINE PF 1MG AMP 10 MG in 0.9% NACL 250ML 240 ML IV PRN (10:15)
[2020-06-21] MEDS ORDERED: NOREPINEPHRINE BITARTRATE 8 MG in DEXTROSE 5%-WATER 250 ML IV PRN (10:15)
[2020-06-21] MEDS ORDERED: NOREPINEPHRINE BITARTRATE 8 MG in 0.9% NACL 250ML 250 ML IV PRN (10:30)
[2020-06-21] MEDS ORDERED: EPINEPHRINE PF 1MG AMP ONE (11:31)
[2020-06-21] MEDS ORDERED: PROTAMINE SULFATE 10 MG/ML 25ML VIAL IV ONE (11:31)
[2020-06-21] MEDS ORDERED: LIDOCAINE PF 100MG/5ML (2%) SYRINGE 5ML ONE (11:31)
[2020-06-21] MEDS ORDERED: NOREPINEPHRINE BITARTRATE 1 MG/1 ML ML IV ONE (11:31)
[2020-06-21] MEDS ORDERED: ESMOLOL HCL 10 MG/ML 10 ML VIAL ONE (11:31)
[2020-06-21] MEDS ORDERED: AMINOCAPROIC ACID 5,000MG VIAL ONE (11:31)
[2020-06-21] MEDS ORDERED: SODIUM BICARB 50MEQ 50ML VIAL 100 ML ONE (11:31)
[2020-06-21] MEDS ORDERED: HEPARIN 10,000 UNIT/10ML (1,000 UNIT/ML) VIAL ONE ×2 (11:31→11:47)
[2020-06-21] MEDS ORDERED: MIDAZOLAM HCL 1 MG/ML 2ML VIAL ONE (11:32)
[2020-06-21] MEDS ORDERED: ROCURONIUM 10MG/1ML SYR 10 MG/ML ML ONE (11:32)
[2020-06-21] MEDS ORDERED: FENTANYL CITRATE PF 50 MCG/1 ML 20ML VIAL IJ ONE (11:32)
[2020-06-21] MEDS ORDERED: PROPOFOL 10 MG/ML 20ML VIAL IV ONE (11:32)
[2020-06-21] MEDS ORDERED: KETAMINE HCL 100 MG/ML 5ML VIAL IJ ONE (11:35)
[2020-06-21 11:56] LABS: ABG BASE EXCESS 6.2 mmol/L (-2.0-3.0); ABG HCO3 32.6 mmol/L (21.0-28.0); ABG OXYGEN SATURATION 89.1 % (95.0-99.0); ABG PCO2 58 mmHg (35-48)
[2020-06-21] MEDS ORDERED: ACETAMINOPHEN 650 MG SUPPOSITORY RC PRN (12:00)
[2020-06-21] MEDS ORDERED: EPINEPHRINE PF 1MG AMP 10 MG in DEXTROSE 5%-WATER 250 ML IV PRN (12:00)
[2020-06-21] MEDS ORDERED: POTASSIUM PHOS 15 mMOL+NS250ML 250 ML IV PRN (12:00)
[2020-06-21] MEDS ORDERED: GLUCAGON 1MG KIT 1 MG ML IM PRN (12:00)
[2020-06-21] MEDS ORDERED: NITROGLYCERIN 50MG/D5W 250ML 250 BOT IV SCH (12:00)
[2020-06-21] MEDS ORDERED: MAGNESIUM 2GM PREMIX 50ML 50 ML IV PRN (12:00)
[2020-06-21] MEDS ORDERED: MORPHINE 4 MG SYG IV PRN (12:00)
[2020-06-21] MEDS ORDERED: ALBUMIN (HUMAN) 5% 250 ML IV PRN (12:00)
[2020-06-21] MEDS ORDERED: DEXTROSE 50%-WATER 50 ML DISP.SYRIN IV PRN (12:00)
[2020-06-21] MEDS ORDERED: NOREPINEPHRIN 4MG/NS 250ML 250 ML IV PRN (12:00)
[2020-06-21] MEDS ORDERED: TRAMADOL HCL 50 MG TABLET PO PRN (12:00)
[2020-06-21] MEDS ORDERED: MORPHINE 2 MG SYG IV PRN (12:00)
[2020-06-21] MEDS ORDERED: 0.9%NACL 10ML VIAL IVP PRN (12:00)
[2020-06-21] MEDS ORDERED: PROPOFOL 1000 MG/100 ML 100 ML IV PRN (12:00)
[2020-06-21] MEDS ORDERED: POTASSIUM CHLORIDE 20MEQ/100ML 100 ML IV PRN (12:00)
[2020-06-21] MEDS ORDERED: AMINOCAPROIC ACID 5,000MG VIAL 15,000 MG in 0.9% NACL 250ML 250 ML IV SCH (12:00)
[2020-06-21] MEDS ORDERED: ONDANSETRON 4MG INJ IV PRN (12:00)
[2020-06-21] MEDS ORDERED: INSULIN REGULAR, HUMAN 3ML 100 UNIT in 0.9%NACL 100ML 99 ML IV SCH ×2 (12:00)
[2020-06-21] MEDS ORDERED: SOLU-MEDROL 125MG VIAL ONE ×3 (12:36)
[2020-06-21 13:00] LABS: ABG BASE EXCESS 4.2 mmol/L (-2.0-3.0); ABG HCO3 27.3 mmol/L (21.0-28.0); ABG OXYGEN SATURATION 99.5 % (95.0-99.0); ABG PCO2 35 mmHg (35-48)
[2020-06-21] MEDS ORDERED: 0.9%NACL 1000ML 1,000 ML IV SCH (13:00)
[2020-06-21 13:54] LABS: ABG BASE EXCESS 3.3 mmol/L (-2.0-3.0); ABG HCO3 26.3 mmol/L (21.0-28.0); ABG OXYGEN SATURATION 98.4 % (95.0-99.0); ABG PCO2 34 mmHg (35-48)
[2020-06-21 14:36] LABS: ABG BASE EXCESS 1.1 mmol/L (-2.0-3.0); ABG HCO3 24.9 mmol/L (21.0-28.0); ABG OXYGEN SATURATION 98.8 % (95.0-99.0); ABG PCO2 36 mmHg (35-48)
[2020-06-21 14:59] LABS: HEMATOCRIT 31.3 % (42-54); MEAN CORPUSCULAR HEMOGLOBIN 29.4 pg (27.0-33.0); MEAN CORPUSCULAR HGB CONC 32.9 g/dL (32.0-36.0); MEAN CORPUSCULAR VOLUME 89.4 fL (79-99); RED BLOOD CELL COUNT(AUTO) 3.5 MIL/uL (4.50-6.20); RED CELL DISTRIBUTION WIDTH 15.2 % (11.0-15.5)
[2020-06-21 15:12] LABS: INR 1.13 (0.85-1.15); PROTHROMBIN TIME 12.2 SEC (9.6-11.6)
[2020-06-21 15:13] LABS: PARTIAL THROMBOPLASTIN TIME 29.7 SEC (26.3-35.5)
[2020-06-21 15:33] LABS: CREATININE 6.7 mg/dL (0.5-1.5); MAGNESIUM 2.1 mg/dL (1.80-2.40); PHOSPHORUS 5.6 mg/dL (2.5-4.9); POTASSIUM 5.7 mmol/L (3.5-5.1)
[2020-06-21] MEDS: CALCIUM GLUC 1GM 1 GM in 0.9%NACL 50ML 50 ML IV PRN ×4 (15:38→23:18)
[2020-06-21 16:47] LABS: ABG BASE EXCESS 1.9 mmol/L (-2.0-3.0); ABG HCO3 27.4 mmol/L (21.0-28.0); ABG OXYGEN SATURATION 97.5 % (95.0-99.0); ABG PCO2 47 mmHg (35-48)
[2020-06-21] MEDS: CEFAZOLIN SODIUM 1 GM VIAL IV SCH (17:25)
[2020-06-21] MEDS: FAMOTIDINE 20MG VIAL IV SCH (17:25)
[2020-06-21 18:36] LABS: ABG BASE EXCESS 0.3 mmol/L (-2.0-3.0); ABG HCO3 25.8 mmol/L (21.0-28.0); ABG OXYGEN SATURATION 96.1 % (95.0-99.0); ABG PCO2 46 mmHg (35-48)
[2020-06-21] MEDS ORDERED: ALPRAZOLAM 0.5 MG TABLET PO SCH (21:00)
[2020-06-21] MEDS: ATORVASTATIN 20 MG TABLET PO SCH (21:00)
[2020-06-21 21:08] LABS: ABG BASE EXCESS -0.3 mmol/L (-2.0-3.0); ABG PCO2 44 mmHg (35-48)
[2020-06-21 22:45] LABS: ABG BASE EXCESS -1.7 mmol/L (-2.0-3.0); ABG HCO3 23.4 mmol/L (21.0-28.0); ABG OXYGEN SATURATION 93.7 % (95.0-99.0); ABG PCO2 41 mmHg (35-48)
[2020-06-22] VITALS (24 sets, daily range): BP systolic 81–141; BP diastolic 33–69
[2020-06-22] MEDS: TRAMADOL HCL 50 MG TABLET PO PRN ×2 (00:23→21:28)
[2020-06-22] MEDS: CEFAZOLIN SODIUM 1 GM VIAL IV SCH ×2 (01:08→08:22)
[2020-06-22 03:40] LABS: ABG BASE EXCESS -3.8 mmol/L (-2.0-3.0); ABG HCO3 22.3 mmol/L (21.0-28.0); ABG OXYGEN SATURATION 94.6 % (95.0-99.0); ABG PCO2 44 mmHg (35-48)
[2020-06-22] MEDS: SODIUM BICARB 50MEQ 50ML VIAL IV PRN ×2 (04:00→12:35)
[2020-06-22 04:13] LABS: HEMATOCRIT 29.4 % (42-54); MEAN CORPUSCULAR HGB CONC 31.3 g/dL (32.0-36.0); MEAN CORPUSCULAR VOLUME 92.7 fL (79-99); RED BLOOD CELL COUNT(AUTO) 3.17 MIL/uL (4.50-6.20); RED CELL DISTRIBUTION WIDTH 16.1 % (11.0-15.5); WHITE BLOOD COUNT (AUTO) 19.5 K/uL (4.8-10.8)
[2020-06-22 04:26] LABS: INR 1.09 (0.85-1.15); PROTHROMBIN TIME 11.8 SEC (9.6-11.6)
[2020-06-22 04:27] LABS: PARTIAL THROMBOPLASTIN TIME 25.8 SEC (26.3-35.5)
[2020-06-22 04:37] LABS: MAGNESIUM 2.6 mg/dL (1.80-2.40); POTASSIUM 5.8 mmol/L (3.5-5.1)
[2020-06-22 05:06] LABS: CREATININE 8.3 mg/dL (0.5-1.5)
[2020-06-22] MEDS: Vitamin B Complex/Vit C/Folic Acid PO SCH (08:22)
[2020-06-22] MEDS: SEVELAMER HCL 800 MG TABLET PO SCH ×3 (08:22→16:11)
[2020-06-22] MEDS: CALCIUM AC 667MG CAP PO SCH ×3 (08:22→16:11)
[2020-06-22] MEDS: ASPIRIN 325MG EC TAB PO SCH (08:22)
[2020-06-22] MEDS: CILOSTAZOL 100 MG TAB PO SCH ×2 (08:23→21:00)
[2020-06-22 12:28] LABS: ABG BASE EXCESS -4.2 mmol/L (-2.0-3.0); ABG HCO3 21.7 mmol/L (21.0-28.0); ABG PCO2 43 mmHg (35-48)
[2020-06-22 12:32] LABS: ABG HCO3 21.5 mmol/L (21.0-28.0); ABG OXYGEN SATURATION 97.5 % (95.0-99.0); ABG PCO2 41 mmHg (35-48)
[2020-06-22] MEDS: 0.9% NACL 500ML IV.SOLN 500 ML IV SCH (19:31)
[2020-06-22] MEDS: ATORVASTATIN 20 MG TABLET PO SCH (21:00)
[2020-06-23] VITALS (26 sets, daily range): BP systolic 99–144; BP diastolic 46–79
[2020-06-23] MEDS: ACETAMINOPHEN 325 MG TAB PO PRN ×2 (02:12→06:10)
[2020-06-23 03:35] LABS: HEMATOCRIT 26.1 % (42-54); MEAN CORPUSCULAR HGB CONC 31.4 g/dL (32.0-36.0); MEAN CORPUSCULAR VOLUME 92.2 fL (79-99); RED BLOOD CELL COUNT(AUTO) 2.83 MIL/uL (4.50-6.20); RED CELL DISTRIBUTION WIDTH 15.8 % (11.0-15.5); WHITE BLOOD COUNT (AUTO) 18.1 K/uL (4.8-10.8)
[2020-06-23 03:55] LABS: MAGNESIUM 2.6 mg/dL (1.80-2.40); PHOSPHORUS 9.2 mg/dL (2.5-4.9); POTASSIUM 5.7 mmol/L (3.5-5.1)
[2020-06-23] MEDS: 0.9% NACL 500ML IV.SOLN 500 ML IV SCH (05:49)
[2020-06-23] MEDS: ASPIRIN 325MG EC TAB PO SCH (08:33)
[2020-06-23] MEDS: CALCIUM AC 667MG CAP PO SCH ×3 (08:33→17:18)
[2020-06-23] MEDS: SEVELAMER HCL 800 MG TABLET PO SCH ×3 (08:33→17:18)
[2020-06-23] MEDS: Vitamin B Complex/Vit C/Folic Acid PO SCH (08:33)
[2020-06-23] MEDS: TRAMADOL HCL 50 MG TABLET PO PRN ×2 (08:34→21:30)
[2020-06-23] MEDS: CARVEDILOL 6.25 MG TABLET PO SCH ×2 (09:00→20:04)
[2020-06-23] MEDS: CILOSTAZOL 100 MG TAB PO SCH ×2 (09:00→20:05)
[2020-06-23] MEDS ORDERED: EPOETIN ALFA-EPBX (ESRD) 10,000 UNIT/ML VIAL SQ SCH (17:30)
[2020-06-23] MEDS: ATORVASTATIN 20 MG TABLET PO SCH (20:05)
[2020-06-24] VITALS (20 sets, daily range): BP systolic 105–154; BP diastolic 41–75
[2020-06-24] MEDS: ACETAMINOPHEN 325 MG TAB PO PRN ×2 (00:04→20:45)
[2020-06-24 05:28] LABS: HEMATOCRIT 22.7 % (42-54); MEAN CORPUSCULAR HEMOGLOBIN 29.1 pg (27.0-33.0); MEAN CORPUSCULAR HGB CONC 31.7 g/dL (32.0-36.0); MEAN CORPUSCULAR VOLUME 91.9 fL (79-99); RED BLOOD CELL COUNT(AUTO) 2.47 MIL/uL (4.50-6.20); RED CELL DISTRIBUTION WIDTH 15.1 % (11.0-15.5); WHITE BLOOD COUNT (AUTO) 12.5 K/uL (4.8-10.8)
[2020-06-24 05:54] LABS: CREATININE 8.7 mg/dL (0.5-1.5)
[2020-06-24] MEDS: SEVELAMER HCL 800 MG TABLET PO SCH ×3 (08:37→16:48)
[2020-06-24] MEDS: ASPIRIN 325MG EC TAB PO SCH (08:37)
[2020-06-24] MEDS: CALCIUM AC 667MG CAP PO SCH ×3 (08:37→16:48)
[2020-06-24] MEDS: CILOSTAZOL 100 MG TAB PO SCH ×2 (08:37→21:15)
[2020-06-24] MEDS: Vitamin B Complex/Vit C/Folic Acid PO SCH (08:37)
[2020-06-24] MEDS: LINAGLIPTIN 5 MG TABLET PO SCH (08:37)
[2020-06-24] MEDS: HEPARIN 5,000 UNIT VIAL SQ SCH ×2 (08:38→21:21)
[2020-06-24] MEDS: CARVEDILOL 6.25 MG TABLET PO SCH (08:42)
[2020-06-24] MEDS ORDERED: 0.9%NACL 1000ML 1,000 ML IV ONE (08:59)
[2020-06-24] MEDS: TRAMADOL HCL 50 MG TABLET PO PRN (10:36)
[2020-06-24] MEDS ORDERED: EPOETIN ALFA-EPBX (ESRD) 10,000 UNIT/ML VIAL SQ NR (12:00)
[2020-06-24] MEDS: FAMOTIDINE 20MG VIAL IV SCH (13:17)
[2020-06-24] MEDS: ATORVASTATIN 20 MG TABLET PO SCH (21:14)
[2020-06-24] MEDS: METOPROLOL TARTRATE 25 MG TAB PO SCH (21:15)
[2020-06-25 04:34] LABS: HEMATOCRIT 23.9 % (42-54); MEAN CORPUSCULAR HEMOGLOBIN 29.5 pg (27.0-33.0); MEAN CORPUSCULAR HGB CONC 31.8 g/dL (32.0-36.0); MEAN CORPUSCULAR VOLUME 92.6 fL (79-99); RED BLOOD CELL COUNT(AUTO) 2.58 MIL/uL (4.50-6.20); RED CELL DISTRIBUTION WIDTH 14.9 % (11.0-15.5); WHITE BLOOD COUNT (AUTO) 12.5 K/uL (4.8-10.8)
[2020-06-25 04:35] VITALS: BP 121/56
[2020-06-25 05:05] LABS: CREATININE 7.4 mg/dL (0.5-1.5); POTASSIUM 4.4 mmol/L (3.5-5.1)
[2020-06-25] MEDS: SEVELAMER HCL 800 MG TABLET PO SCH ×3 (09:10→16:28)
[2020-06-25] MEDS: Vitamin B Complex/Vit C/Folic Acid PO SCH (09:10)
[2020-06-25] MEDS: CILOSTAZOL 100 MG TAB PO SCH ×2 (09:11→20:51)
[2020-06-25] MEDS: CALCIUM AC 667MG CAP PO SCH ×3 (09:11→16:28)
[2020-06-25] MEDS: ASPIRIN 325MG EC TAB PO SCH (09:11)
[2020-06-25] MEDS: LINAGLIPTIN 5 MG TABLET PO SCH (09:11)
[2020-06-25] MEDS: METOPROLOL TARTRATE 25 MG TAB PO SCH ×2 (09:11→20:52)
[2020-06-25 09:19] VITALS: BP 140/55
[2020-06-25] MEDS: HEPARIN 5,000 UNIT VIAL SQ SCH ×2 (09:56→20:53)
[2020-06-25] MEDS: ACETAMINOPHEN 325 MG TAB PO PRN ×3 (11:31→23:23)
[2020-06-25 13:04] VITALS: BP 122/56
[2020-06-25 17:29] VITALS: BP 130/87
[2020-06-25 19:58] VITALS: BP 127/59
[2020-06-25] MEDS: ATORVASTATIN 20 MG TABLET PO SCH (20:52)
[2020-06-25 23:35] VITALS: BP 127/65
[2020-06-26 03:52] VITALS: BP 125/69
[2020-06-26 04:06] LABS: BASOPHILS % (AUTO) 0.3 % (0.0-5.0); EOSINOPHILS % (AUTO) 2.7 % (0.0-8.0); MEAN CORPUSCULAR HEMOGLOBIN 29.4 pg (27.0-33.0); MEAN CORPUSCULAR HGB CONC 31.8 g/dL (32.0-36.0); MEAN CORPUSCULAR VOLUME 92.4 fL (79-99); MONOCYTES % (AUTO) 11.1 % (3.0-13.0); NEUTROPHILS % (AUTO) 77.2 % (40.0-77.0); PLATELET COUNT (AUTO) 158 K/uL (130-400); RED BLOOD CELL COUNT(AUTO) 2.38 MIL/uL (4.50-6.20); RED CELL DISTRIBUTION WIDTH 14.6 % (11.0-15.5); WHITE BLOOD COUNT (AUTO) 10.4 K/uL (4.8-10.8)
[2020-06-26 04:22] LABS: POTASSIUM 4.1 mmol/L (3.5-5.1)
[2020-06-26 05:07] LABS: CREATININE 9.5 mg/dL (0.5-1.5)
[2020-06-26 08:00] VITALS: BP 147/75
[2020-06-26] MEDS: ACETAMINOPHEN 325 MG TAB PO PRN ×2 (10:18→20:25)
[2020-06-26] MEDS: ASPIRIN 325MG EC TAB PO SCH (11:09)
[2020-06-26] MEDS: SEVELAMER HCL 800 MG TABLET PO SCH ×3 (11:09→17:45)
[2020-06-26] MEDS: CILOSTAZOL 100 MG TAB PO SCH ×2 (11:09→20:24)
[2020-06-26] MEDS: LINAGLIPTIN 5 MG TABLET PO SCH (11:09)
[2020-06-26] MEDS: Vitamin B Complex/Vit C/Folic Acid PO SCH (11:09)
[2020-06-26] MEDS: CALCIUM AC 667MG CAP PO SCH ×3 (11:09→17:45)
[2020-06-26] MEDS: METOPROLOL TARTRATE 25 MG TAB PO SCH ×2 (11:10→21:05)
[2020-06-26] MEDS: HEPARIN 5,000 UNIT VIAL SQ SCH ×2 (11:21→20:26)
[2020-06-26 11:45] VITALS: BP 146/64
[2020-06-26] MEDS ORDERED: 0.9% NACL 250ML 250 ML IV ONE (13:37)
[2020-06-26] MEDS ORDERED: METO25 PO (14:26)
[2020-06-26] MEDS ORDERED: ACET-2247 PO (14:26)
[2020-06-26] MEDS ORDERED: ATOR20TA65 PO (14:26)
[2020-06-26] MEDS ORDERED: ASPI-891 PO (14:26)
[2020-06-26 16:00] VITALS: BP 117/48
[2020-06-26] MEDS ORDERED: FUROSEMIDE 20MG VIAL ONE ×2 (17:42→21:03)
[2020-06-26] MEDS: FAMOTIDINE 20MG VIAL IV SCH (17:46)
[2020-06-26] MEDS ORDERED: FUROSEMIDE 20MG VIAL IV SCH (18:45)
[2020-06-26 20:10] VITALS: BP 157/76
[2020-06-26] MEDS: ATORVASTATIN 20 MG TABLET PO SCH (20:24)
[2020-06-26] MEDS ORDERED: FUROSEMIDE 100MG VIAL ONE (20:58)
[2020-06-26 21:13] VITALS: BP 167/76
[2020-06-27 00:22] VITALS: BP 132/64
[2020-06-27] MEDS: ACETAMINOPHEN 325 MG TAB PO PRN ×2 (03:32→20:29)
[2020-06-27 04:45] VITALS: BP 142/67
[2020-06-27 07:43] LABS: BASOPHILS % (AUTO) 0.6 % (0.0-5.0); EOSINOPHILS % (AUTO) 2.8 % (0.0-8.0); LYMPHOCYTES % (AUTO) 7.9 % (21.0-51.0); MEAN CORPUSCULAR HEMOGLOBIN 29.9 pg (27.0-33.0); MEAN CORPUSCULAR HGB CONC 32.7 g/dL (32.0-36.0); MEAN CORPUSCULAR VOLUME 91.5 fL (79-99); NEUTROPHILS % (AUTO) 75.5 % (40.0-77.0); PLATELET COUNT (AUTO) 228 K/uL (130-400); RED BLOOD CELL COUNT(AUTO) 2.84 MIL/uL (4.50-6.20); WHITE BLOOD COUNT (AUTO) 12.3 K/uL (4.8-10.8)
[2020-06-27 07:59] LABS: POTASSIUM 3.7 mmol/L (3.5-5.1)
[2020-06-27 08:00] VITALS: BP 148/67
[2020-06-27] MEDS: Vitamin B Complex/Vit C/Folic Acid PO SCH (09:26)
[2020-06-27] MEDS: CALCIUM AC 667MG CAP PO SCH ×2 (09:26→11:49)
[2020-06-27] MEDS: METOPROLOL TARTRATE 25 MG TAB PO SCH ×2 (09:26→20:21)
[2020-06-27] MEDS: SEVELAMER HCL 800 MG TABLET PO SCH ×2 (09:26→11:49)
[2020-06-27] MEDS: CILOSTAZOL 100 MG TAB PO SCH ×2 (09:27→20:21)
[2020-06-27] MEDS: LINAGLIPTIN 5 MG TABLET PO SCH (09:27)
[2020-06-27] MEDS: ASPIRIN 325MG EC TAB PO SCH (09:27)
[2020-06-27] MEDS: HEPARIN 5,000 UNIT VIAL SQ SCH ×2 (09:33→20:27)
[2020-06-27 11:40] VITALS: BP 158/80
[2020-06-27 16:00] VITALS: BP 185/82
[2020-06-27 19:30] VITALS: BP 156/67
[2020-06-27] MEDS: ATORVASTATIN 20 MG TABLET PO SCH (20:21)
[2020-09-16] MEDS ORDERED: LOSA100T58 PO (11:46)
[2020-09-16] MEDS ORDERED: ROSU5TAB12 PO (11:46)
[2020-09-16] MEDS ORDERED: AMLO-258 PO (11:48)
[2020-09-16] MEDS ORDERED: CARV25TA PO (11:48)
[2020-09-16] MEDS ORDERED: CILO100T PO (11:48)
[2020-09-16] MEDS ORDERED: CLON0.1T PO (11:48)
[2020-09-16] MEDS ORDERED: INSU100V37 SQ (11:52)
[2020-09-16] MEDS ORDERED: [UNRECOGNIZED DRUG - OTHER] PO (11:53)
[2020-09-17] MEDS ORDERED: ASPI-449 PO (07:26)
== END 2020-06-27 22:15 | DRG 233 ==
LOC: EDH 08:14 → EDHIP 09:13 → OBSVTOIN 09:13 → 3AH 06-18 17:27 → 2CH 06-21 13:50 → 4CH 06-24 17:48
PROVIDERS: ADMIT Internal Medicine Infectious Disease; ATTEND Thoracic Surgery (Cardiothoracic Vascular Surgery)
PROC: B2111ZZ Fluoroscopy of Multiple Coronary Arteries using Low Osmolar Contrast (ICD-10-PCS; principal; 2020-06-20)
PROC: B2151ZZ Fluoroscopy of Left Heart using Low Osmolar Contrast (ICD-10-PCS; 2020-06-20)
PROC: 4A023N7 Measurement of Cardiac Sampling and Pressure, Left Heart, Percutaneous Approach (ICD-10-PCS; 2020-06-20)
PROC: 06BQ4ZZ Excision of Left Saphenous Vein, Percutaneous Endoscopic Approach (ICD-10-PCS; 2020-06-21)
PROC: 30233N1 Transfusion of Nonautologous Red Blood Cells into Peripheral Vein, Percutaneous Approach (ICD-10-PCS; 2020-06-21)
PROC: 02100Z9 Bypass Coronary Artery, One Artery from Left Internal Mammary, Open Approach (ICD-10-PCS; 2020-06-21 12:00)
PROC: 021009W Bypass Coronary Artery, One Artery from Aorta with Autologous Venous Tissue, Open Approach (ICD-10-PCS; 2020-06-21 12:00)
PROC: 5A1D70Z Performance of Urinary Filtration, Intermittent, Less than 6 Hours Per Day (ICD-10-PCS; 2020-06-27)
DX: T82.855A Stenosis of coronary artery stent, initial encounter (principal); N18.6 End stage renal disease; J81.0 Acute pulmonary edema; J96.91 Respiratory failure, unspecified with hypoxia; J90 Pleural effusion, not elsewhere classified; I12.0 Hypertensive chronic kidney disease with stage 5 chronic kidney disease or end stage renal disease; J81.1 Chronic pulmonary edema; N17.9 Acute kidney failure, unspecified; I24.9 Acute ischemic heart disease, unspecified; I25.110 Atherosclerotic heart disease of native coronary artery with unstable angina pectoris; Z68.42 Body mass index [BMI] 45.0-49.9, adult; E87.5 Hyperkalemia; E11.22 Type 2 diabetes mellitus with diabetic chronic kidney disease; E11.649 Type 2 diabetes mellitus with hypoglycemia without coma; D63.8 Anemia in other chronic diseases classified elsewhere; E66.01 Morbid (severe) obesity due to excess calories; D63.1 Anemia in chronic kidney disease; E78.00 Pure hypercholesterolemia, unspecified; E78.5 Hyperlipidemia, unspecified; E83.39 Other disorders of phosphorus metabolism; E87.70 Fluid overload, unspecified; J98.4 Other disorders of lung; Y83.1 Surgical operation with implant of artificial internal device as the cause of abnormal reaction of the patient, or of later complication, without mention of misadventure at the time of the procedure; Z79.82 Long term (current) use of aspirin; Z79.899 Other long term (current) drug therapy; Z82.49 Family history of ischemic heart disease and other diseases of the circulatory system; Z83.3 Family history of diabetes mellitus; Z20.822 Contact with and (suspected) exposure to COVID-19; D64.9 Anemia, unspecified; Z87.01 Personal history of pneumonia (recurrent); Z87.11 Personal history of peptic ulcer disease; Z91.11 Patient's noncompliance with dietary regimen; Z91.19 Patient's noncompliance with other medical treatment and regimen; Z95.1 Presence of aortocoronary bypass graft; Z99.2 Dependence on renal dialysis; E87.6 Hypokalemia
CPT/HCPCS: 36415; 36430; 71045; 80048; 80053; 80061; 80074; 82435; 82550; 82803; 82947; 82948; 83036; 83605; 83735; 83880; 84100; 84132; 84295; 84484; 85018; 85025; 85027; 85347; 85610; 85730; 86850; 86900; 86901; 86923; 90935; 93005; 93458; 93880; 94002; 94010; 94150; 94640; 97039; 99156; 99157; 99291; A7048; C1769; C1894; G0378; J0171; J0583; J0610; J0690; J1644; J1815; J1940; J2001; J2250; J2440; J2704; J2720; J2930; J3010; J3490; J7030; J7040; J7050; J7070; P9016; P9045; Q9967; U0003